=== PATIENT | female | born 1945 | race Caucasian/White ===

== ENCOUNTER 2016-04-17 14:01 | Outpatient (RCR) | payer BC ==
[~2016-04-17 14:01] MED LIST: AMLO5TAB2 PO; ASPI-892 PO; CALC-80 PO; CHOL10003 PO; ESOM40SU PO; ESTR1TAB27 PO; ESTR2TAB4 PO; FEXO180T84 PO; FLUR100T2 PO; FRS325T PO; IBP600T1 PO; IRB150T PO; LEVO50TA63 PO; LOSA100T7 PO; LRT10T PO; METO-351 PO; MULT1CAP27 PO; OMEP-10 PO; OMG1KC PO; SIMV20TA3 PO; VITA10007 PO; [UNRECOGNIZED DRUG - CODE] PO
== END 2016-07-09 | disposition home or self-care (01) ==
LOC: ONC 14:01
PROVIDERS: ATTEND Internal Medicine Hematology & Oncology
DX: D50.9 Iron deficiency anemia, unspecified (principal); Z79.899 Other long term (current) drug therapy
CPT/HCPCS: 99213

== ENCOUNTER 2016-05-10 16:10 | Outpatient (RCR) | payer BC ==
--- OUTSIDE RECORDS SUMMARY | 2016-03-14 14:15 | XMS REPORT | Continuity of Care Document ---
Author Author [facility] Organization [facility] Address Unknown Phone Unavailable Support Name Relationship Address Phone TERI RUVALCABA DO Caregiver [address] [place] [address] CYNTHIA GOOD MD Caregiver [address] [facility], [place] [address] ORTEGA ARELLANO Next Of Kin [address] [place] [id number] Insurance Providers Payer Name Policy Number Subscriber Name Relationship [id number] Leah Arellano 19 Self / Same As Patient Advance Directives Directive Response Recorded Date/Time Advance Directives No 04/08/14 12:20pm Health Care Power of Wire Stitcher Operator No 04/08/14 12:20pm Organ Donor Yes 04/08/14 12:20pm Resuscitation Status Full Code 04/08/14 12:20pm Problems No known problems or medical conditions. Medications Medication Dose Route Sig Days/Qty Instructions Order Date Discontinued Date Status Simvastatin 20 Mg PO BEDTIME 03/12/10 Active Aspirin 81 Mg PO DAILY 03/12/10 Active Estradiol 1 Tab PO DAILY 03/12/10 04/08/14 Discontinued Amlodipine Besylate (Norvasc 5 Mg) 1 PO DAILY 03/12/10 09/13/11 Discontinued Levothyroxine Sodium 0.05 Mg PO DAILY 03/12/10 Active Calcium Carbonate 1 PO DAILY 03/12/10 10/16/11 Discontinued Cholecalciferol 1 PO DAILY 03/12/10 09/13/11 Discontinued Vitamin E 1 PO DAILY 03/12/10 10/16/11 Discontinued Fish Oil 1 PO DAILY 03/12/10 10/16/11 Discontinued Losartan Potassium 100 Mg PO DAILY 07/20/10 Active Loratadine 1 Tab PO DAILY 07/20/10 04/08/14 Discontinued Amlodipine Besylate (Norvasc 5 Mg) 5 Mg PO DAILY 09/13/11 Active Omeprazole 20 Mg PO DAILY PRN 09/13/11 04/08/14 Discontinued Calcium Carbonate/Vitamin D3 2 Each PO DAILY 10/16/11 Active Multivitamins 1 Each PO DAILY 10/16/11 Active Ibuprofen 600 Mg PO DIRECTED 2 TABS IN MORNING, 1 TAB AT NOON, 1 TAB AT BEDTIME 10/16/11 04/08/14 Discontinued Estradiol 1 Mg PO DAILY 04/08/14 Active Fexofenadine Hcl 180 Mg PO DAILY 04/08/14 Active Ferrous Sulfate 325 Mg PO THREE TIMES A DAY 04/08/14 Active Esomeprazole Mag Trihydrate 40 Mg PO DAILY 04/08/14 Active Metoprolol Succinate 25 Mg PO DAILY 04/08/14 Active Flurbiprofen 100 Mg PO DAILY 04/08/14 Active Social History Social History Problem Response Recorded Date/Time Recent Foreign Travel No 04/08/2014 12:19pm Smoking Status Never a Smoker 04/08/2014 12:15pm Do you dip or chew tobacco? No 04/08/2014 12:15pm Query Response Start Date Stop Date Smoking Status Never a Smoker Hospital Discharge Instructions No hospital discharge instructions. Plan of Care No plan of care. Functional Status No functional status results. Allergies, Adverse Reactions, Alerts Allergen Type Severity Reaction Status Last Updated No Known Drug Allergies Active 03/12/10 Immunizations Name Given Type Date of Pneumonia Vaccine 03/09/10 Historical Date of Influenza Vaccine 01/07/14 Historical Vital Signs Acute Vital Signs Vital Response Date/Time Temperature (Fahrenheit) 97.9 degrees F (97.6 - 99.5) Temperature (Calculated Celsius) 36.84352 degrees C (36.4 - 37.5) Temperature Source Tympanic Pulse Rate (adult) 58 bpm (60 - 90) Respiratory Rate 16 bpm (12 - 24) O2 Sat by Pulse Oximetry 97 % (88 - 100) Blood Pressure 139/79 mm Hg Pain Pain Intensity 0 Height (Feet) 5 feet Height (Inches) 5.00 inches Height (Calculated Centimeters) 165.330666 cm Weight (Pounds) 160 pounds Weight (Calculated Grams) 90574.780 gm Weight (Calculated Kilograms) 72.808096 kilograms Height 5 ft 5 in Weight 160 lb Body Mass Index 26.6 kg/m^2 Results No known relevant diagnostic tests, laboratory data and/or discharge summary. Procedures Procedure Status Date Provider(s) Anesthesia for 30 minutes completed 04/08/14 TERI RUVALCABA DO Esophagogastroduodenoscopy (EGD) with dilation completed 04/08/14 TERI RUVALCABA DO Diagnostic colonoscopy completed 04/08/14 TERI RUVALCABA DO Encounters Encounter Location Date/Time Registered Surgical Day Care [facility] 04/08/14 11:30am Registered Clinic [facility] 04/07/14 6:11am Registered Recurring [facility] 04/05/14 10:33am
== END 2016-05-28 08:52 | disposition home or self-care (01) ==
PROVIDERS: ATTEND Physician Assistant
DX: M47.9 Spondylosis, unspecified (principal); M43.10 Spondylolisthesis, site unspecified; M48.00 Spinal stenosis, site unspecified

== ENCOUNTER → 2016-09-20 | Outpatient (CLI) | payer BC | LOC: CARD 11:55 | PROVIDERS: ATTEND Nurse Practitioner Family | DX: I65.23 Occlusion and stenosis of bilateral carotid arteries (principal); E78.4 Other hyperlipidemia; I10 Essential (primary) hypertension; I34.1 Nonrheumatic mitral (valve) prolapse | CPT/HCPCS: 93306 ==

== ENCOUNTER 2016-10-15 14:55 | Outpatient (RCR) | payer BC | END 2017-01-07 | disposition home or self-care (01) | LOC: ONC 14:55 | PROVIDERS: ATTEND Internal Medicine Hematology & Oncology | DX: D50.9 Iron deficiency anemia, unspecified (principal); Z79.899 Other long term (current) drug therapy | CPT/HCPCS: 99213 ==

== ENCOUNTER → 2016-12-03 | Outpatient (CLI) | payer BC ==
--- NOTE | 2016-12-03 14:22 | Diagnostic Imaging Report ---
PROCEDURE: MRI right joint lower extremity without contrast. TECHNIQUE: Multiplanar, multisequence non contrast-enhanced MRI of the right lower extremity was accomplished. INDICATION: Twisted right knee 2 weeks ago. Right knee pain. FINDINGS: There is a moderate to large knee effusion. There is a Portillo's cyst measuring 4.3 x 3.1 x 2 cm with adjacent free fluid suggestive of a leak. There is also septated fluid seen that appears to be loculated within the joint capsule abutting the posterior superior aspect of the PCL. This might represent a loculated effusion in this region. The extensor mechanism is intact. There is an undersurface tear involving the posterior root and posterior horn of the lateral meniscus. There is a meniscofemoral ligament normal variant suggested coursing anterior to the PCL. The medial meniscus demonstrates a complex tear involving the body of the meniscus and extending to the posterior horn. The ACL and the PCL demonstrate no significant tear. MCL is thickened probably related to old injury with possible component of an acute sprain based on the adjacent soft tissue edema. The lateral collateral ligament complex appears intact. There is subchondral bone marrow edema in the medial compartment, worst along the medial aspect of the medial tibial plateau. The cartilage in the medial compartment demonstrates generalized thinning, worst in the medial aspect at about 75%. Cartilage in the lateral compartment demonstrates mild thinning less than 50%. The cartilage in the patellofemoral compartment demonstrates some fissuring with no significant thinning otherwise. There is mild subcutaneous edema anterior to the patellar tendon. IMPRESSION: 1. Osteoarthritis changes most prominent in the medial compartment. 2. Complex tear in the body of the medial meniscus extending to the posterior horn. 3. Undersurface tear involving the posterior root and adjacent posterior horn in the lateral meniscus. 4. Leaking Portillo's cyst. Dictated by: Dictated on workstation # [id number]
== END ==
LOC: RAD 13:10
PROVIDERS: ATTEND Orthopaedic Surgery
DX: S83.231A Complex tear of medial meniscus, current injury, right knee, initial encounter (principal); S83.281A Other tear of lateral meniscus, current injury, right knee, initial encounter; M17.11 Unilateral primary osteoarthritis, right knee; M66.0 Rupture of popliteal cyst; X50.9XXA Other and unspecified overexertion or strenuous movements or postures, initial encounter; Y99.8 Other external cause status
CPT/HCPCS: 73721

== ENCOUNTER 2017-04-15 13:17 | Outpatient (RCR) | payer BC | END 2017-07-07 | disposition home or self-care (01) | LOC: ONC 13:17 | PROVIDERS: ATTEND Internal Medicine Hematology & Oncology | DX: D50.9 Iron deficiency anemia, unspecified (principal); Z79.899 Other long term (current) drug therapy | CPT/HCPCS: 99213 ==

== ENCOUNTER → 2017-09-24 | Outpatient (CLI) | payer MEDICARE, OTHER ==
[~2017-09-24] MED LIST changes: +AMLO5TAB4 PO; +ASPI-586 PO; +FERR-84 PO; +HYDR-3870 PO; +LEVO50TA66 PO; +LORA10TA76 PO; +LOSA100T28 PO; +MULT-35 PO; +NITR-65 PO; +TAMS0.4C98 PO
--- NOTE | 2017-09-24 09:01 | Diagnostic Imaging Report ---
PROCEDURE: CT abdomen and pelvis without contrast. TECHNIQUE: Multiple contiguous axial images were obtained through the abdomen and pelvis without the use of intravenous contrast. INDICATION: Hematuria. History of kidney stones and UTI. FINDINGS: There are multiple calculi present within the kidneys bilaterally. There is a stone wedged into the right UPJ which is causing mild hydronephrosis. This measures approximately 9 x 6 mm. There are several additional smaller stones in the lower pole calyx on the right. There are few small stones scattered in the left kidney with moderate stone noted at the UPJ on the left. This is not causing obstruction at this time. This measures 9 x 5 mm. The distal ureters are not distended. There are no distal ureteral stones. The bladder is decompressed. The uterus is absent. There are no pelvic masses. There is diverticulosis of the descending and sigmoid colon without evidence of acute diverticulitis. Small bowel and stomach appear normal. The lung bases are clear. Liver appears normal. Gallbladder is absent. Bile ducts not dilated. The pancreas and spleen are normal. The adrenal glands are normal. There is no intra-abdominal adenopathy. No free fluid is demonstrated. There are no bony lesions. IMPRESSION: There is bilateral nephrolithiasis. There are calculi in the renal pelvis at the UPJ bilaterally largest on the right measuring 9 x 6 mm is causing mild hydronephrosis. There is also a 2 cm cyst in the upper pole of the left kidney. Dictated by: Dictated on workstation # [id number]
== END ==
LOC: RAD 08:24
PROVIDERS: ATTEND Urology
DX: N13.2 Hydronephrosis with renal and ureteral calculous obstruction (principal); N28.1 Cyst of kidney, acquired; Z87.440 Personal history of urinary (tract) infections
CPT/HCPCS: 74176

== ENCOUNTER 2017-10-14 05:39 | Outpatient (CLI) | payer MEDICARE, OTHER ==
[~2017-10-14] VITALS: Ht 165.1 cm; Wt 69.9 kg
[~2017-10-14 05:39] MED LIST changes: -AMLO5TAB4 PO; -ASPI-586 PO; -FERR-84 PO; -HYDR-3870 PO; -LEVO50TA66 PO; -LORA10TA76 PO; -LOSA100T28 PO; -MULT-35 PO; -NITR-65 PO; -TAMS0.4C98 PO
[2017-10-14] MEDS ORDERED: LOSA100T28 PO (11:49)
[2017-10-14] MEDS ORDERED: SIMV20TA3 PO (11:49)
[2017-10-14] MEDS ORDERED: ASPI-586 PO (11:49)
[2017-10-14] MEDS ORDERED: FERR-84 PO (11:49)
[2017-10-14] MEDS ORDERED: LORA10TA76 PO (11:49)
[2017-10-14] MEDS ORDERED: LEVO50TA66 PO (11:49)
[2017-10-14] MEDS ORDERED: AMLO5TAB4 PO (11:49)
[2017-10-14] MEDS ORDERED: METO-351 PO (11:49)
[2017-10-14] MEDS ORDERED: MULT-35 PO (11:49)
== END 2017-10-14 11:53 | disposition home or self-care (01) ==
LOC: PREOP 05:39
PROVIDERS: ATTEND Urology
DX: Z01.818 Encounter for other preprocedural examination (principal)

== ENCOUNTER 2017-10-16 07:32 | Day surgery (SDC) | payer MEDICARE, OTHER ==
[~2017-10-16] VITALS: Ht 165.1 cm; Wt 69.9 kg
[~2017-10-16 07:32] MED LIST changes: +AMLO5TAB4 PO; +ASPI-586 PO; +FERR-84 PO; +LEVO50TA66 PO; +LORA10TA76 PO; +LOSA100T28 PO; +MULT-35 PO
[2017-10-16] MEDS ORDERED: cefTRIAXone INJECTION 1,000 MG in NS (IVPB) 50 ML IV ONE (07:45)
[2017-10-16] MEDS: LACTATED RINGERS 1,000 ML IV PRN ×2 (08:15→09:39)
[2017-10-16 08:20] VITALS: BP 154/108
--- NOTE | 2017-10-16 08:21 | Diagnostic Imaging Report ---
INDICATION: Renal stone. TIME OF EXAMINATION: 08:14 a.m. FINDINGS: There has been fragmentation of numerous calculi overlying the lower pole of the right kidney. There also appears to be some slight fragmentation of the previously noted large calculus in the right renal pelvis. These fragments remain in the renal pelvis. There has also been fragmentation of multiple calculi in the left renal pelvis. No calculi within the ureters are seen. The bowel gas pattern is unremarkable. Surgical clips in the right upper quadrant are seen. IMPRESSION: Fragmentation of bilateral renal calculi, as described. No definite calculi along the course of ureters are seen. Dictated by: Dictated on workstation # [id number]
--- NOTE | 2017-10-16 08:34 | Progress Note-Pre Operative ---
Pre-Operative Progress Note H&P Reviewed The H&P was reviewed, patient examined and no changes noted. Date Seen by Provider: Oct 16, 2017 Time Seen by Provider: 08:33 Date H&P Reviewed: Oct 16, 2017 Time H&P Reviewed: 08:33 Pre-Operative Diagnosis: RT UPJ STONE MIGUEL A BRADLEY MD Oct 16, 2017 8:34 am
--- NOTE | 2017-10-16 08:44 | Progress Note-Post Operative ---
Post-Operative Progess Note Surgeon (s)/Storyboard Artist (s) Surgeon MIGUEL A BRADLEY MD Storyboard Artist: N/A Pre-Operative Diagnosis RT UPJ STONE Post-Operative Diagnosis SAME Procedure & Operative Findings Date of Procedure 10/16/17 Procedure Performed/Findings RT ESWL Anesthesia Type GENERAL Estimated Blood Loss Estimated blood loss (mL): N/A Specimens/Packing Specimens Removed N/A Packing: N/A MIGUEL A BRADLEY MD Oct 16, 2017 8:44 am
--- NOTE | 2017-10-16 08:45 | Discharge Inst-Urology ---
Discharge Inst-Urology Discharge Medications New, Converted, or Re-newed RX: RX on Chart Patient Instructions/Follow Up Plan Please make appointment to been seen in office Saturday 10/28, KUB prior to it KUB on way home Stay off ASA Post ESWL instructions Increase oral fluids for 48 hours and then as needed. Diet and Activity as tolerated. If questions or concerns contact your physician Or seek help at emergency department. MIGUEL A BRADLEY MD Oct 16, 2017 8:45 am
[2017-10-16] MEDS ORDERED: fentaNYL INJECTION 100 MCG/2 ML AMP ONE (09:06)
[2017-10-16] MEDS ORDERED: proPOfol 200 MG/20 ML (DIPRIVAN) VIAL IV ONE (09:23)
[2017-10-16] MEDS ORDERED: DEXAMETHASONE 10 MG/ML (DECADRON) 1 ML VIAL ONE (09:23)
[2017-10-16] MEDS ORDERED: FUROSEMIDE 40 MG/4 ML INJ (LASIX) ONE (09:23)
[2017-10-16] MEDS ORDERED: KETOROLAC 30 MG/ML VIAL ONE (09:23)
[2017-10-16] MEDS ORDERED: SEVOFLURANE (ULTANE) 15 ML INHAL SOLN ONE (09:23)
[2017-10-16] MEDS ORDERED: LIDOCAINE PF 2% 5 ML (XYLOCAINE) VIAL ONE (09:23)
[2017-10-16] MEDS ORDERED: ONDANSETRON 4 MG/2 ML (SDV) Z0FRAN ONE (09:23)
[2017-10-16] MEDS ORDERED: HYDROmorphone 1 MG/ML (DILAUDID) 1 ML SYRINGE IV PRN (10:00)
[2017-10-16] MEDS ORDERED: ONDANSETRON 4 MG/2 ML (SDV) Z0FRAN IVP PRN (10:00)
[2017-10-16 10:50] VITALS: BP 166/95
[2017-10-16] MEDS ORDERED: TAMS0.4C98 PO (11:14)
[2017-10-16] MEDS ORDERED: NITR-65 PO (11:14)
[2017-10-16] MEDS ORDERED: HYDR-3870 PO (11:14)
[2017-10-16 11:20] VITALS: BP 162/73
[2017-10-16 11:50] VITALS: BP 170/86
--- NOTE | 2017-10-16 18:51 | Diagnostic Imaging Report ---
INDICATION: Nephrolithiasis. EXAMINATION: KUB was obtained at 11:58 a.m. FINDINGS: There are stone fragments projecting over the lower pole of the right kidney that appear considerably smaller than comparison study from earlier in the day. IMPRESSION: Stone in the right kidney appears to have undergone interval fragmentation. There also appears to be a small cluster of stones in the left renal pelvis. Dictated by: Dictated on workstation # [id number]
--- NOTE | 2017-10-16 19:21 | OPERATIVE REPORT ---
DATE OF SERVICE: 10/16/2017 PREOPERATIVE DIAGNOSES: 1. Right ureteropelvic junction stone. 2. Bilateral renal stones. POSTOPERATIVE DIAGNOSES: 1. Right ureteropelvic junction stone. 2. Bilateral renal stones. OPERATION PERFORMED: Right ESWL. SURGEON: Nguyễn Bradley MD. ANESTHESIA: General. COMPLICATIONS: None. DESCRIPTION OF PROCEDURE: Under satisfactory general anesthesia, the patient in supine position on the ESWL table, the right UPJ stone was localized. Shocks were delivered at a kV of 5. A total of 2500 shocks completely fragmented the stone, which was not visible anymore. The patient received 40 mg of Lasix and 30 mg of Toradol IV at the end of the procedure. She tolerated the procedure and anesthesia well and was sent to recovery room in stable condition. Job ID: [id number] DocumentID: [id number] Dictated Date: 10/16/2017 09:43:31 Canoe Builder Date: 10/16/2017 18:59:48 Dictated By: NGUYỄN BRADLEY MD
== END 2017-10-16 12:18 | disposition home or self-care (01) ==
LOC: SDC 07:32
PROVIDERS: ATTEND Urology
DX: N20.0 Calculus of kidney (principal); N20.1 Calculus of ureter; I10 Essential (primary) hypertension; Z79.82 Long term (current) use of aspirin; Z79.899 Other long term (current) drug therapy
CPT/HCPCS: 74018; 87081

== ENCOUNTER → 2017-10-28 | Outpatient (CLI) | payer MEDICARE, OTHER ==
[~2017-10-28] VITALS: Ht 165.1 cm; Wt 69.9 kg
[~2017-10-28] MED LIST changes: +HYDR-3870 PO; +NITR-65 PO; +TAMS0.4C98 PO
== END ==
LOC: PREOP 10-24 05:35
PROVIDERS: ATTEND Urology
DX: Z01.818 Encounter for other preprocedural examination (principal)

== ENCOUNTER → 2017-10-28 | Outpatient (CLI) | payer MEDICARE, OTHER ==
--- NOTE | 2017-10-28 11:13 | Diagnostic Imaging Report ---
INDICATION: Nephrolithiasis KUB 11:18 AM Gallbladder is surgically absent. There appears to be some stone fragments projecting over a mid and lower pole calyx of left kidney. There are no calculi seen in the ureteral distribution. IMPRESSION: There appears to be fragmented stones in the left kidney. Dictated by: Dictated on workstation # [id number]
== END ==
LOC: RAD 10:47
PROVIDERS: ATTEND Urology
DX: N20.0 Calculus of kidney (principal)
CPT/HCPCS: 74018

== ENCOUNTER 2017-10-29 06:29 | Day surgery (SDC) | payer MEDICARE, OTHER ==
[~2017-10-29] VITALS: Ht 165.1 cm; Wt 69.9 kg
[2017-10-29 07:00] VITALS: BP 150/71
[2017-10-29] MEDS: LACTATED RINGERS 1,000 ML IV PRN ×2 (07:00→08:58)
--- NOTE | 2017-10-29 07:01 | Progress Note-Pre Operative ---
Pre-Operative Progress Note H&P Reviewed The H&P was reviewed, patient examined and no changes noted. Date Seen by Provider: Oct 29, 2017 Time Seen by Provider: 07:01 Date H&P Reviewed: Oct 29, 2017 Time H&P Reviewed: 07:01 Pre-Operative Diagnosis: LT RENAL STONES MIGUEL A BRADLEY MD Oct 29, 2017 7:01 am
--- NOTE | 2017-10-29 07:11 | Diagnostic Imaging Report ---
INDICATION: Bilateral renal stones. COMPARISON: 10/28/2017 FINDINGS: Single frontal view of the abdomen is obtained. The bowel gas pattern appears unremarkable. Fragmented stones seen over the medial aspect of the mid left kidney appear fairly similar to the prior study. No ureteral stones are suspected. No new renal stones are suspected. There are surgical clips in the right upper quadrant from previous cholecystectomy. There are moderate degenerative changes in lower lumbar spine. IMPRESSION: Fragmented stones seen over the medial aspect of the left kidney appear fairly similar to the recent prior exam. No new abnormality or significant interval change is appreciated. Dictated by: Dictated on workstation # [id number]
[2017-10-29] MEDS ORDERED: cefTRIAXone INJECTION 1,000 MG in NS (IVPB) 50 ML IV ONE (07:30)
[2017-10-29] MEDS ORDERED: CATHETER FLUSH 10 ML SYR IV PRN (07:45)
[2017-10-29] MEDS ORDERED: MIDAZOLAM 2 MG/2 ML (VERSED) VIAL ONE (08:10)
[2017-10-29] MEDS ORDERED: ONDANSETRON 4 MG/2 ML (SDV) Z0FRAN ONE (08:10)
[2017-10-29] MEDS ORDERED: LIDOCAINE PF 2% 5 ML (XYLOCAINE) VIAL ONE (08:10)
[2017-10-29] MEDS ORDERED: fentaNYL INJECTION 100 MCG/2 ML AMP ONE (08:10)
[2017-10-29] MEDS ORDERED: DEXAMETHASONE 10 MG/ML (DECADRON) 1 ML VIAL ONE (08:10)
[2017-10-29] MEDS ORDERED: proPOfol 200 MG/20 ML (DIPRIVAN) VIAL IV ONE (08:10)
[2017-10-29] MEDS ORDERED: KETOROLAC 30 MG/ML VIAL ONE (08:13)
[2017-10-29] MEDS ORDERED: SEVOFLURANE (ULTANE) 15 ML INHAL SOLN ONE (08:13)
[2017-10-29] MEDS ORDERED: FUROSEMIDE 40 MG/4 ML INJ (LASIX) ONE (08:13)
--- NOTE | 2017-10-29 08:27 | Progress Note-Post Operative ---
Post-Operative Progess Note Surgeon (s)/Skin Diving Teacher (s) Surgeon MIGUEL A BRADLEY MD Skin Diving Teacher: N/A Pre-Operative Diagnosis LT RENAL STONES Post-Operative Diagnosis SAME Procedure & Operative Findings Date of Procedure 10/29/17 Procedure Performed/Findings LT ESWL Anesthesia Type GENERAL Estimated Blood Loss Estimated blood loss (mL): N/A Specimens/Packing Specimens Removed N/A Packing: N/A MIGUEL A BRADLEY MD Oct 29, 2017 8:27 am
--- NOTE | 2017-10-29 08:29 | Discharge Inst-Urology ---
Discharge Inst-Urology Discharge Medications New, Converted, or Re-newed RX: RX on Chart Patient Instructions/Follow Up Plan Please make appointment to been seen in office Saturday 11/11, ABDULLAHI prior to it. KULeann on way home Post ESWL instructions Increase oral fluids for 48 hours and then as needed. Diet and Activity as tolerated. If questions or concerns contact your physician Or seek help at emergency department. MIGUEL A BRADLEY MD Oct 29, 2017 8:29 am
[2017-10-29] MEDS ORDERED: morphine INJ 10 MG/ML 1ML (SYR OR VIAL) IVP PRN (09:00)
[2017-10-29] MEDS ORDERED: MEPERIDINE (DEMEROL) INJ 50 MG/ML IVP PRN (09:00)
[2017-10-29] MEDS ORDERED: ONDANSETRON 4 MG/2 ML (SDV) Z0FRAN IVP PRN (09:00)
--- NOTE | 2017-10-29 09:03 | Anesthesia-General Post-Op ---
General Patient Condition Mental Status/LOC: Same as Preop Cardiovascular: Satisfactory Nausea/Vomiting: Absent Respiratory: Satisfactory Pain: Controlled Complications: Absent Post Op Complications Complications None Follow Up Care/Instructions Patient Instructions None needed. Anesthesia/Patient Condition Patient Condition Patient is doing well, no complaints, stable vital signs, no apparent adverse anesthesia problems. No complications reported per nursing. [place] [facility] [place] Yes ERAN GREEN CRNA Oct 29, 2017 09:03
[2017-10-29 09:40] VITALS: BP 143/79
[2017-10-29] MEDS ORDERED: NITR-65 PO (09:45)
[2017-10-29 10:10] VITALS: BP 146/79
[2017-10-29 10:40] VITALS: BP 150/77
[2017-10-29 10:50] VITALS: BP 150/77
--- NOTE | 2017-10-29 13:17 | Diagnostic Imaging Report ---
EXAMINATION: Supine abdomen at 10:51 a.m. INDICATION: Post ESWL. FINDINGS: The exam performed earlier today at 7:10 a.m. noted fragmented stones overlying the medial aspect of the left kidney. Those calcific densities are again identified on this study. They are somewhat less conspicuous, and I suspect that they have been fragmented in the ESWL procedure performed in the interval since the prior study. There is no clear evidence for a calculus along the expected path of the left ureter, although the path of the left ureter is obscured by bowel gas and fecal material. No new abnormality has developed otherwise. IMPRESSION: 1. The calcifications overlying the left renal pelvis seen previously are less conspicuous and most likely have been fragmented by the ESWL procedure. 2. The overall appearance of the abdomen has not changed significantly otherwise. 3. A followup exam would be recommended for continued evaluation. Dictated by: Dictated on workstation # [id number]
--- NOTE | 2017-10-29 13:55 | OPERATIVE REPORT ---
DATE OF SERVICE: 10/29/2017 PREOPERATIVE DIAGNOSIS: Left renal stones. POSTOPERATIVE DIAGNOSIS: Left renal stones. OPERATION PERFORMED: Left ESWL. SURGEON: Nguyễn Bradley MD ANESTHESIA: General. COMPLICATIONS: None. DESCRIPTION OF PROCEDURE: Under satisfactory general anesthesia, the patient in supine position on the ESWL table, the left renal stones were localized. Shocks were delivered at a kV of 5. Total of 1500 shocks completely fragmented the stones that were not visible anymore. The patient received 40 mg of Lasix and 30 mg of Toradol IV at the end of the procedure. She tolerated the procedure and anesthesia well and was sent to recovery room in stable condition. Job ID: [id number] DocumentID: [id number] Dictated Date: 10/29/2017 08:43:53 Bilingual Sales Consultant Date: 10/29/2017 13:54:41 Dictated By: NGUYỄN BRADLEY MD
== END 2017-10-29 10:50 | disposition home or self-care (01) ==
LOC: SDC 06:29
PROVIDERS: ATTEND Urology
DX: N20.0 Calculus of kidney (principal); I25.10 Atherosclerotic heart disease of native coronary artery without angina pectoris; I10 Essential (primary) hypertension; D64.9 Anemia, unspecified; Z79.899 Other long term (current) drug therapy
CPT/HCPCS: 74018; 87081

== ENCOUNTER → 2017-11-11 | Outpatient (CLI) | payer MEDICARE, OTHER ==
--- NOTE | 2017-11-11 14:12 | Diagnostic Imaging Report ---
INDICATION: Nephrolithiasis. COMPARISON: 10/29/2017. FINDINGS: The bowel gas pattern is nonspecific. There are surgical clips in the right upper quadrant. There is an ill-defined calcification projected over the inferior aspect of the left kidney, suspect for nephrolithiasis. IMPRESSION: Presumed left nephrolithiasis. Nonspecific bowel gas pattern. Dictated by: Dictated on workstation # [id number]
== END ==
LOC: RAD 11:40
PROVIDERS: ATTEND Urology
DX: N20.0 Calculus of kidney (principal)
CPT/HCPCS: 74018

== ENCOUNTER 2017-11-25 14:15 | Outpatient (RCR) | payer MEDICARE, OTHER ==
[2017-10-07 11:33] LABS: BASOPHILS % (AUTO) 0 % (0-10); EOSINOPHILS # (AUTO) 0.6 10^3/uL (0.0-0.3); EOSINOPHILS % (AUTO) 8 % (0-10); HEMATOCRIT 34 % (35-52); HEMOGLOBIN 11.1 G/DL (11.5-16.0); LYMPHOCYTES # (AUTO) 1.3 X 10^3 (1.0-4.0); LYMPHOCYTES % (AUTO) 19 % (12-44); MEAN CORPUSCULAR HEMOGLOBIN 29 PG (25-34); MEAN CORPUSCULAR HGB CONC 33 G/DL (32-36); MEAN CORPUSCULAR VOLUME 89 FL (80-99); MEAN PLATELET VOLUME 8.6 FL (7.4-10.4); MONOCYTES # (AUTO) 0.8 X 10^3 (0.0-1.0); MONOCYTES % (AUTO) 12 % (0-12); NEUTROPHILS # (AUTO) 4.3 X 10^3 (1.8-7.8); NEUTROPHILS % (AUTO) 61 % (42-75); PLATELET COUNT 198 10^3/uL (130-400); RED BLOOD COUNT 3.83 10^6/uL (4.35-5.85); RED CELL DISTRIBUTION WIDTH 13.3 % (10.0-14.5)
[2017-10-07 11:58] LABS: ALANINE AMINOTRANSFERASE 17 U/L (0-55); ALBUMIN 4.1 GM/DL (3.2-4.5); ALKALINE PHOSPHATASE 103 U/L (40-136); BILIRUBIN,TOTAL 0.4 MG/DL (0.1-1.0); BUN/CREATININE RATIO 27; CALCIUM 9.7 MG/DL (8.5-10.1); CARBON DIOXIDE 24 MMOL/L (21-32); CHLORIDE 110 MMOL/L (98-107); CREATININE SERUM 0.78 MG/DL (0.60-1.30); GFR ESTIMATED > 60; GLUCOSE 95 MG/DL (70-105); POTASSIUM 4.1 MMOL/L (3.6-5.0); SODIUM 141 MMOL/L (135-145); TOTAL PROTEIN 6.7 GM/DL (6.4-8.2)
[~2017-11-25 14:15] MED LIST changes: +FERRIC CARBOXYMALTOSE (CANCER) 750 MG in NS (IVPB) CANCER CENTER 250 ML IV SCH
[2017-11-25 14:34] LABS: BASOPHILS % (AUTO) 0 % (0-10); EOSINOPHILS # (AUTO) 0.5 10^3/uL (0.0-0.3); EOSINOPHILS % (AUTO) 7 % (0-10); HEMATOCRIT 36 % (35-52); HEMOGLOBIN 12.3 G/DL (11.5-16.0); LYMPHOCYTES # (AUTO) 1.6 X 10^3 (1.0-4.0); LYMPHOCYTES % (AUTO) 23 % (12-44); MEAN CORPUSCULAR HEMOGLOBIN 31 PG (25-34); MEAN CORPUSCULAR HGB CONC 34 G/DL (32-36); MEAN CORPUSCULAR VOLUME 90 FL (80-99); MONOCYTES # (AUTO) 0.6 X 10^3 (0.0-1.0); MONOCYTES % (AUTO) 9 % (0-12); NEUTROPHILS # (AUTO) 4.4 X 10^3 (1.8-7.8); NEUTROPHILS % (AUTO) 61 % (42-75); PLATELET COUNT 199 10^3/uL (130-400); RED BLOOD COUNT 3.98 10^6/uL (4.35-5.85); RED CELL DISTRIBUTION WIDTH 13.5 % (10.0-14.5); WHITE BLOOD COUNT 7.1 10^3/uL (4.3-11.0)
[2017-11-25 14:58] LABS: ALANINE AMINOTRANSFERASE 16 U/L (0-55); ALBUMIN 4.2 GM/DL (3.2-4.5); ALKALINE PHOSPHATASE 152 U/L (40-136); BILIRUBIN,TOTAL 0.3 MG/DL (0.1-1.0); BUN/CREATININE RATIO 25; CALCIUM 9.8 MG/DL (8.5-10.1); CARBON DIOXIDE 24 MMOL/L (21-32); CHLORIDE 110 MMOL/L (98-107); CREATININE SERUM 0.76 MG/DL (0.60-1.30); GFR ESTIMATED > 60; GLUCOSE 103 MG/DL (70-105); POTASSIUM 4.1 MMOL/L (3.6-5.0); SODIUM 141 MMOL/L (135-145); TOTAL PROTEIN 6.7 GM/DL (6.4-8.2)
== END 2017-12-02 13:15 | disposition home or self-care (01) ==
LOC: ONC 14:15
PROVIDERS: ATTEND Internal Medicine Hematology & Oncology
DX: D50.9 Iron deficiency anemia, unspecified (principal); Z79.899 Other long term (current) drug therapy
CPT/HCPCS: 36415; 80053; 82728; 85025; 96365

== ENCOUNTER 2017-12-02 13:18 | Outpatient (RCR) | payer MEDICARE, OTHER ==
[~2017-12-02 13:18] MED LIST changes: -FERRIC CARBOXYMALTOSE (CANCER) 750 MG in NS (IVPB) CANCER CENTER 250 ML IV SCH; -LOSA100T28 PO; +LOSA100T8 PO
== END 2017-12-27 | disposition home or self-care (01) ==
LOC: ONC 13:18
PROVIDERS: ATTEND Internal Medicine Hematology & Oncology
DX: D50.9 Iron deficiency anemia, unspecified (principal); Z79.899 Other long term (current) drug therapy
CPT/HCPCS: 99213

== ENCOUNTER 2018-03-05 10:20 | Outpatient (RCR) | payer MEDICARE, OTHER ==
[2018-02-28 11:29] LABS: BASOPHILS % (AUTO) 0 % (0-10); EOSINOPHILS # (AUTO) 0.5 10^3/uL (0.0-0.3); EOSINOPHILS % (AUTO) 6 % (0-10); HEMATOCRIT 38 % (35-52); HEMOGLOBIN 12.3 G/DL (11.5-16.0); LYMPHOCYTES # (AUTO) 1.5 X 10^3 (1.0-4.0); LYMPHOCYTES % (AUTO) 19 % (12-44); MEAN CORPUSCULAR HEMOGLOBIN 30 PG (25-34); MEAN CORPUSCULAR HGB CONC 32 G/DL (32-36); MEAN CORPUSCULAR VOLUME 91 FL (80-99); MEAN PLATELET VOLUME 9.2 FL (7.4-10.4); MONOCYTES # (AUTO) 0.8 X 10^3 (0.0-1.0); MONOCYTES % (AUTO) 11 % (0-12); NEUTROPHILS % (AUTO) 64 % (42-75); PLATELET COUNT 233 10^3/uL (130-400); RED CELL DISTRIBUTION WIDTH 12.6 % (10.0-14.5); WHITE BLOOD COUNT 7.8 10^3/uL (4.3-11.0)
[2018-02-28 11:50] LABS: ALANINE AMINOTRANSFERASE 17 U/L (0-55); ALBUMIN 4.5 GM/DL (3.2-4.5); ALKALINE PHOSPHATASE 117 U/L (40-136); BILIRUBIN,TOTAL 0.5 MG/DL (0.1-1.0); BUN/CREATININE RATIO 29; CALCIUM 10.4 MG/DL (8.5-10.1); CARBON DIOXIDE 24 MMOL/L (21-32); CHLORIDE 107 MMOL/L (98-107); CREATININE SERUM 0.75 MG/DL (0.60-1.30); GFR ESTIMATED > 60; GLUCOSE 92 MG/DL (70-105); POTASSIUM 4.2 MMOL/L (3.6-5.0); SODIUM 142 MMOL/L (135-145); TOTAL PROTEIN 7.1 GM/DL (6.4-8.2)
[~2018-03-05 10:20] MED LIST changes: +LOSA100T57 PO; -LOSA100T8 PO
== END 2018-05-29 | disposition home or self-care (01) ==
LOC: ONC 10:20
PROVIDERS: ATTEND Internal Medicine Hematology & Oncology
DX: D50.9 Iron deficiency anemia, unspecified (principal); Z79.899 Other long term (current) drug therapy
CPT/HCPCS: 80053; 82728; 85025; 99213

== ENCOUNTER 2018-09-04 10:27 | Outpatient (RCR) | payer MEDICARE, OTHER ==
[2018-08-28 10:49] LABS: ABSOLUTE RETIC # 34 10e9/L (24-90); BASOPHILS % (AUTO) 0 % (0-10); EOSINOPHILS # (AUTO) 0.7 10^3/uL (0.0-0.3); EOSINOPHILS % (AUTO) 8 % (0-10); HEMATOCRIT 38 % (35-52); HEMOGLOBIN 12.2 G/DL (11.5-16.0); LYMPHOCYTES # (AUTO) 1.4 X 10^3 (1.0-4.0); LYMPHOCYTES % (AUTO) 18 % (12-44); MEAN CORPUSCULAR HEMOGLOBIN 29 PG (25-34); MEAN CORPUSCULAR HGB CONC 32 G/DL (32-36); MEAN CORPUSCULAR VOLUME 89 FL (80-99); MONOCYTES # (AUTO) 0.9 X 10^3 (0.0-1.0); MONOCYTES % (AUTO) 11 % (0-12); NEUTROPHILS # (AUTO) 4.9 X 10^3 (1.8-7.8); NEUTROPHILS % (AUTO) 63 % (42-75); PLATELET COUNT 222 10^3/uL (130-400); RED CELL DISTRIBUTION WIDTH 12.9 % (10.0-14.5); RETICULOCYTE % 0.79 % (0.50-2.40); WHITE BLOOD COUNT 7.8 10^3/uL (4.3-11.0)
[2018-08-28 11:04] LABS: ALANINE AMINOTRANSFERASE 16 U/L (0-55); ALBUMIN 4.2 GM/DL (3.2-4.5); ALKALINE PHOSPHATASE 106 U/L (40-136); BILIRUBIN,TOTAL 0.3 MG/DL (0.1-1.0); BUN/CREATININE RATIO 27; CALCIUM 10.2 MG/DL (8.5-10.1); CARBON DIOXIDE 24 MMOL/L (21-32); CHLORIDE 110 MMOL/L (98-107); CREATININE SERUM 0.79 MG/DL (0.60-1.30); GFR ESTIMATED > 60; GLUCOSE 93 MG/DL (70-105); POTASSIUM 4.5 MMOL/L (3.6-5.0); SODIUM 144 MMOL/L (135-145); TOTAL PROTEIN 6.8 GM/DL (6.4-8.2)
[2018-09-04 11:01] LABS: BILIRUBIN,URINE NEGATIVE (NEGATIVE); CLARITY,URINE CLEAR; COLOR,URINE YELLOW; GLUCOSE, URINE (UA) NEGATIVE (NEGATIVE); KETONES,URINE NEGATIVE (NEGATIVE); LEUKOCYTE ESTERASE ,URINE 3+ (NEGATIVE); NITRITE,URINE NEGATIVE (NEGATIVE); PH,URINE 5 (5-9); PROTEIN,URINE NEGATIVE (NEGATIVE); UROBILINOGEN,URINE NORMAL (NORMAL)
[2018-09-04 11:22] LABS: BACTERIA,URINE MODERATE /HPF; WBC,URINE 25-50 /HPF
== END 2018-11-26 | disposition home or self-care (01) ==
LOC: ONC 10:27
PROVIDERS: ATTEND Internal Medicine Hematology & Oncology
DX: D50.9 Iron deficiency anemia, unspecified (principal); Z79.899 Other long term (current) drug therapy
CPT/HCPCS: 36415; 80053; 81000; 82728; 85025; 85045; 87077; 87088; 87186; 99213

== ENCOUNTER → 2018-12-03 | Outpatient (CLI) | payer MEDICARE, OTHER ==
--- NOTE | 2018-12-03 15:38 | Diagnostic Imaging Report ---
EXAMINATION: Supine abdomen at 12:15 p.m. INDICATION: Urinary tract infection. FINDINGS: The prior abdomen exam of 11/11/2017 noted a calcification overlying the inferior pole of the left kidney. That finding is again evident and does not seem to have changed significantly since the prior exam; however in the interval since the previous study, a 6 mm calcific density has developed over the inferior pole of the right kidney. This is probably secondary to nephrolithiasis. If further study is desired, then CT of the abdomen and pelvis will be recommended. There is no sign of a calculus along the expected paths of the ureters. The small phleboliths seen previously are again evident and no different. There is some gas in both the large and small bowel in a nonspecific fashion. There is no evidence for bowel obstruction. There is no mass, organomegaly, or pathological calcification evident. There is a moderate amount of fecal material within the colon. This is similar to the prior exam. Surgical clips are again seen in the right upper quadrant. The osseous structures are intact. IMPRESSION: 1. In the interval since the prior study, a 6 mm calcification has developed over the inferior pole of the right kidney. Most likely, this is due to an intrarenal calculus. Recommendations as above. 2. The overall appearance of the abdomen has not changed significantly otherwise. Dictated by: Dictated on workstation # [id number]
== END ==
LOC: RAD 11:38
PROVIDERS: ATTEND Urology
DX: N39.0 Urinary tract infection, site not specified (principal); N28.89 Other specified disorders of kidney and ureter; I87.8 Other specified disorders of veins; Z98.890 Other specified postprocedural states; Z87.442 Personal history of urinary calculi
CPT/HCPCS: 74018

== ENCOUNTER 2018-12-23 07:03 | Day surgery (SDC) | payer MEDICARE, OTHER ==
[2018-12-23] VITALS (10 sets, daily range): BP systolic 136–168; BP diastolic 75–87
[~2018-12-23] VITALS: Ht 165.1 cm; Wt 69.9 kg
[~2018-12-23 07:03] MED LIST changes: +CETI10TA20 PO; +LISI10TA2 PO; +MULT1TAB69 PO
[2018-12-23] MEDS ORDERED: cefTRIAXone FOR IV USE 1,000 MG in WATER (STERILE) FOR INJECTION 10 ML IV ONE (07:15)
[2018-12-23] MEDS ORDERED: CATHETER FLUSH 10 ML SYR IV PRN (07:30)
--- NOTE | 2018-12-23 07:42 | Progress Note-Pre Operative ---
Pre-Operative Progress Note H&P Reviewed The H&P was reviewed, patient examined and no changes noted. Date Seen by Provider: Dec 23, 2018 Time Seen by Provider: 07:41 Date H&P Reviewed: Dec 23, 2018 Time H&P Reviewed: 07:41 Pre-Operative Diagnosis: RT RENAL STONE MIGUEL A BRADLEY MD Dec 23, 2018 07:42
[2018-12-23] MEDS: LACTATED RINGERS 1,000 ML IV PRN ×2 (07:45→10:19)
[2018-12-23] MEDS ORDERED: LISI10TA2 PO (07:58)
[2018-12-23] MEDS ORDERED: ESOM20CA58 PO (07:58)
[2018-12-23] MEDS ORDERED: ASPI-479 PO (07:58)
[2018-12-23] MEDS ORDERED: FAMOTIDINE 20MG/2ML IV (PEPCID) IV ONE (08:00)
[2018-12-23] MEDS ORDERED: ONDANSETRON 4 MG/2 ML (SDV) Z0FRAN IV ONE (08:00)
[2018-12-23] MEDS ORDERED: fentaNYL INJECTION 100 MCG/2 ML AMP ONE (08:35)
--- NOTE | 2018-12-23 09:05 | Diagnostic Imaging Report ---
INDICATION: Preoperative, renal stones Comparison: 12/03/2018 Technique: Single radiograph of abdomen dated 12/18/2018. Findings: Surgical clips within the right upper quadrant of the abdomen. Multiple calcifications are again identified overlying the bilateral renal shadows, most prominent overlying the inferior pole of the right renal shadow measuring 0.8 cm. Overall, these calcifications appear similar to the prior examination. Phleboliths within the lower pelvis. No new calcification seen along the expected course of the bilateral ureters. Nonspecific bowel gas pattern. Scattered osseous degenerative changes, particularly at L5/S1. No acute osseous abnormality. IMPRESSION: Bilateral renal calculi, appearing similar to the prior examination. Dictated by: Dictated on workstation # [id number]
[2018-12-23] MEDS ORDERED: FUROSEMIDE 40 MG/4 ML INJ (LASIX) ONE (09:37)
[2018-12-23] MEDS ORDERED: KETOROLAC 30 MG/ML VIAL ONE (09:37)
[2018-12-23] MEDS ORDERED: DEXAMETHASONE 10 MG/ML (DECADRON) 1 ML VIAL ONE (09:37)
[2018-12-23] MEDS ORDERED: SEVOFLURANE (ULTANE) 15 ML INHAL SOLN ONE ×4 (09:37→10:12)
[2018-12-23] MEDS ORDERED: proPOfol 200 MG/20 ML (DIPRIVAN) VIAL IV ONE (09:37)
[2018-12-23] MEDS ORDERED: LIDOCAINE PF 2% 5 ML (XYLOCAINE) VIAL ONE (09:37)
--- NOTE | 2018-12-23 09:48 | Progress Note-Post Operative ---
Post-Operative Progess Note Surgeon (s)/Flight Agent (s) Surgeon MIGUEL A BRADLEY MD Flight Agent: NONE Pre-Operative Diagnosis RT RENAL STONE Post-Operative Diagnosis SAME Procedure & Operative Findings Date of Procedure 12/23/18 Procedure Performed/Findings RT ESWL Anesthesia Type GENERAL Estimated Blood Loss Estimated blood loss (mL): NONE Specimens/Packing Specimens Removed NONE Packing: NONE MIGUEL A BRADLEY MD Dec 23, 2018 09:48
--- NOTE | 2018-12-23 09:50 | Discharge Inst-Urology ---
Discharge Inst-Urology Patient Instructions/Follow Up Plan/Assessment/Instructions Please make appointment to been seen in office in 2 weeks. KUB prior to it KUB on way home Post ESWL instructions Increase oral fluids for 48 hours and then as needed. Diet and Activity as tolerated. If questions or concerns contact your physician Or seek help at emergency department. MIGUEL A BRADLEY MD Dec 23, 2018 09:50
[2018-12-23] MEDS ORDERED: morphine INJ 10 MG/ML 1ML (SYR OR VIAL) IVP ONE (10:30)
[2018-12-23] MEDS ORDERED: ONDANSETRON 4 MG/2 ML (SDV) Z0FRAN IVP PRN (10:30)
--- NOTE | 2018-12-23 11:10 | NUR ---
TO AMB SURG FROM PAR PER CART. ALERT, DENIES COMPLAINTS. PO FLUIDS PROVIDED.
--- NOTE | 2018-12-23 11:40 | NUR ---
HAS BEEN TAKING PO FLUIDS WITHOUT PROBLEM AND VOIDING CLEAR, PINK URINE. URINE STRAINED, NO STONE PARTICLES PASSED. DENIES COMPLAINTS, GAIT STEADY WHEN UP WITH ASSIST.
[2018-12-23] MEDS ORDERED: HYDR-3870 PO (12:16)
[2018-12-23] MEDS ORDERED: NITR-65 PO (12:16)
[2018-12-23] MEDS ORDERED: TAMS0.4C98 PO (12:16)
--- NOTE | 2018-12-23 12:26 | Diagnostic Imaging Report ---
INDICATION: Postop ESWL. COMPARISON: 12/23/2018. FINDINGS: Calculi projecting at the lower pole of the right and lower and upper poles of the left kidneys are not substantially changed in appearance. A phlebolith extra-ureteral in the left hemipelvis is chronic. The bowel gas pattern is unremarkable. IMPRESSION: Bilateral nephrolithiases have not substantially changed from the prior exam. No suspected radiodense ureteral coursed stone; otherwise, negative. Dictated by: Dictated on workstation # [id number]
--- NOTE | 2018-12-23 12:30 | NUR ---
CONTINUES TO VOID WITHOUT PROBLEM, URINE CLEAR LIGHT PINK, NO STONE PARTICLES OBTAINED. DENIES COMPLAINTS, ALERT AND CHEERFUL. STATES SHE IS READY FOR DISMISSAL.
--- NOTE | 2018-12-23 13:16 | OPERATIVE REPORT ---
DATE OF SERVICE: 12/23/2018 PREOPERATIVE DIAGNOSIS: Right renal stone. POSTOPERATIVE DIAGNOSIS: Right renal stone. OPERATION PERFORMED: Right ESWL. SURGEON: Nguyễn Bradley MD ANESTHESIA: General. COMPLICATIONS: None. DESCRIPTION OF PROCEDURE: Under satisfactory general anesthesia, the patient in supine position on the ESWL table, the right renal stone was localized. Shocks were delivered at kV of 6, a total of 3000 shocks were delivered. The stone fragmented nicely in layer. The patient received 40 mg of Lasix and 30 mg of Toradol IV at the end of the procedure. She tolerated the procedure and anesthesia well and was sent to recovery room in stable condition. Job ID: [id number] DocumentID: [id number] Dictated Date: 12/23/2018 10:17:04 Administrative Support Assoc Date: 12/23/2018 13:15:02 Dictated By: NGUYỄN BRADLEY MD
--- NOTE | 2018-12-23 14:49 | Anesthesia-General Post-Op ---
General Patient Condition Mental Status/LOC: Same as Preop Cardiovascular: Satisfactory Nausea/Vomiting: Absent Respiratory: Satisfactory Pain: Controlled Complications: Absent Post Op Complications Complications None Follow Up Care/Instructions Patient Instructions None needed. Anesthesia/Patient Condition Patient Condition Patient was seen after the procedure and he was doing well, no complaints, stable vital signs, no apparent adverse anesthesia problems. MACRINA MOULTON DO Dec 23, 2018 14:49
== END 2018-12-23 12:38 | disposition home or self-care (01) ==
LOC: SDC 07:03
PROVIDERS: ATTEND Urology
DX: N20.0 Calculus of kidney (principal); K21.9 Gastro-esophageal reflux disease without esophagitis; E78.5 Hyperlipidemia, unspecified; E07.9 Disorder of thyroid, unspecified; I10 Essential (primary) hypertension
CPT/HCPCS: 74018; 87081

== ENCOUNTER → 2019-01-06 | Outpatient (CLI) | payer MEDICARE, OTHER ==
[~2019-01-06] MED LIST changes: +ASPI-479 PO; +ESOM20CA58 PO
--- NOTE | 2019-01-06 13:19 | Diagnostic Imaging Report ---
INDICATION: Followup renal calculus. COMPARISON: 12/23/2018 FINDINGS: Single frontal radiographic view of the abdomen was obtained and demonstrates a 7 mm extraosseous calcification projecting over the inferior pole of the right renal shadow. Extraosseous calcifications are also seen projecting over the inferior pole of the left renal shadow. Overall, appearance is stable. No unexpected radiopaque foreign bodies are seen. Small bowel loops are nondistended. There is no large collection of free intraperitoneal air. Osseous structures show age-related degenerative changes. IMPRESSION: 1. Persistent bilateral nephrolithiasis. Dictated by: Dictated on workstation # [id number]
== END ==
LOC: RAD 12:51
PROVIDERS: ATTEND Urology
DX: N20.0 Calculus of kidney (principal)
CPT/HCPCS: 74018

== ENCOUNTER 2019-03-05 09:25 | Outpatient (RCR) | payer MEDICARE, OTHER ==
[2019-02-26 11:32] LABS: BASOPHILS % (AUTO) 0 % (0-10); EOSINOPHILS # (AUTO) 0.3 10^3/uL (0.0-0.3); EOSINOPHILS % (AUTO) 2 % (0-10); HEMATOCRIT 38 % (35-52); LYMPHOCYTES % (AUTO) 8 % (12-44); MEAN CORPUSCULAR HEMOGLOBIN 28 PG (25-34); MEAN CORPUSCULAR HGB CONC 32 G/DL (32-36); MEAN CORPUSCULAR VOLUME 88 FL (80-99); MONOCYTES # (AUTO) 1.3 X 10^3 (0.0-1.0); MONOCYTES % (AUTO) 9 % (0-12); NEUTROPHILS # (AUTO) 11.1 X 10^3 (1.8-7.8); NEUTROPHILS % (AUTO) 81 % (42-75); PLATELET COUNT 228 10^3/uL (130-400); RED CELL DISTRIBUTION WIDTH 13.5 % (10.0-14.5); WHITE BLOOD COUNT 13.8 10^3/uL (4.3-11.0)
[2019-02-26 11:51] LABS: ALANINE AMINOTRANSFERASE 17 U/L (0-55); ALBUMIN 4.3 GM/DL (3.2-4.5); ALKALINE PHOSPHATASE 100 U/L (40-136); BILIRUBIN,TOTAL 0.6 MG/DL (0.1-1.0); BUN/CREATININE RATIO 24; CALCIUM 10.1 MG/DL (8.5-10.1); CARBON DIOXIDE 23 MMOL/L (21-32); CHLORIDE 110 MMOL/L (98-107); CREATININE SERUM 0.76 MG/DL (0.60-1.30); GFR ESTIMATED > 60; GLUCOSE 97 MG/DL (70-105); POTASSIUM 4.1 MMOL/L (3.6-5.0); SODIUM 143 MMOL/L (135-145)
[~2019-03-05 09:25] MED LIST changes: +SIMV20TA26 PO; -TAMS0.4C98 PO; +TMSL.4C PO
== END 2019-05-27 | disposition home or self-care (01) ==
LOC: ONC 09:25
PROVIDERS: ATTEND Internal Medicine Hematology & Oncology
DX: D50.9 Iron deficiency anemia, unspecified (principal); Z79.899 Other long term (current) drug therapy
CPT/HCPCS: 36415; 80053; 82728; 84443; 85025; 99213

== ENCOUNTER → 2019-03-11 | Outpatient (CLI) | payer MEDICARE, OTHER ==
[~2019-03-11] MED LIST changes: -SIMV20TA26 PO; +TAMS0.4C98 PO; -TMSL.4C PO
--- NOTE | 2019-03-11 12:24 | Diagnostic Imaging Report ---
INDICATION: Routine screening. Comparison is made with prior mammogram from 03/04/2014. 2-D and 3-D bilateral screening mammography was performed. The current study was also evaluated with a Computer Aided Detection (CAD) system. 3-D tomosynthesis was also performed and reviewed. FINDINGS: Scattered fibroglandular densities are identified bilaterally. Benign parenchymal and vascular calcifications are noted bilaterally. No dominant mass or malignant-appearing microcalcifications are seen. Axillae are unremarkable. IMPRESSION: No mammographic features suspicious for malignancy are identified. ACR BI-RADS Category 2: Benign findings. Result letter will be mailed to the patient. Note: At least 10% of breast cancer is not imaged by mammography. Dictated by: Dictated on workstation # [id number]
== END ==
LOC: RAD 09:32
PROVIDERS: ATTEND Nurse Practitioner Adult Health
DX: Z12.31 Encounter for screening mammogram for malignant neoplasm of breast (principal)
CPT/HCPCS: 77067

== ENCOUNTER 2019-05-11 11:48 | Emergency (ER) | payer MEDICARE, OTHER ==
[~2019-05-11] VITALS: Ht 165 cm; Wt 70.5 kg
[~2019-05-11 11:48] MED LIST changes: +SIMV20TA26 PO; -TAMS0.4C98 PO; +TMSL.4C PO
--- NOTE | 2019-05-11 12:29 | ED Head Injury ---
General Stated Complaint: FALL;HEAD INJ Source: patient Exam Limitations: no limitations History of Present Illness Date Seen by Provider: May 11, 2019 Time Seen by Provider: 12:13 Initial Comments PT ARRIVES VIA POV FROM HOME STATES SHE WAS WALKING OUTSIDE AND TRIPPED OVER SOME FENCING AND FELL FORWARD, HITTING HEAD ON SIDEWALK OCCURRED 30 MINUTES AGO NO LOSS OF CONSCIOUSNESS C/O BAD HEADACHE C/O NAUSEA, NO VOMITING C/O FEELING OFF BALANCE, BUT DOES NOT FEEL DIZZY NO VISION CHANGES NO PARESTHESIAS OR MOTOR DEFICITS NO NECK OR BACK PAIN NO HIP OR KNEE PAIN, NO ARM PAIN PT TOOK 1 BABY ASPIRIN TODAY NO OTHER BLOOD THINNERS PT IMMEDIATELY PLACED IN CERVICAL COLLAR PCP: DR. GOOD--WILL BE SEEING DR. VALDEZ, DR. GOOD IS RETIRING. Allergies and Home Medications Allergies Coded Allergies: No Known Drug Allergies (Unverified , 10/14/17) Home Medications Amlodipine Besylate 5 Mg Tablet, 5 MG PO DAILY, (Reported) Cetirizine HCl 10 Mg Tablet, 10 MG PO DAILY, (Reported) Esomeprazole Magnesium 20 Mg Capsule.dr, 20 MG PO DAILY, (Reported) Hydrocodone/Acetaminophen 1 Each Tablet, 1-2 EACH PO Q4H PRN for PAIN-MODERATE Prescribed by: GIOVANNA PILLAI on 12/23/181215 Levothyroxine Sodium 50 Mcg Tablet, 50 MCG PO DAILY, (Reported) Lisinopril 10 Mg Tablet, 10 MG PO DAILY, (Reported) Metoprolol Succinate 25 Mg Tab.er.24h, 25 MG PO DAILY, (Reported) Multivitamin 1 Each Tablet, 1 EACH PO DAILY, (Reported) Nitrofurantoin Monohyd/M-Cryst 100 Mg Capsule, 1 TAB PO BID Prescribed by: GIOVANNA PILLAI on 12/23/181215 Simvastatin 20 Mg Tablet, 20 MG PO DAILY, (Reported) Tamsulosin HCl 0.4 Mg Cap, 0.4 MG PO DAILY Prescribed by: GIOVANNA PILLAI on 12/23/181215 Patient Home Medication List Home Medication List Reviewed: Yes Review of Systems Review of Systems Constitutional: no symptoms reported Eyes: Denies Blurred Vision, Denies Photophobia, Denies Vision Changes; Other (LEFT PERIORBITAL HEMATOMA) Ears, Nose, Mouth, Throat: denies nose pain, denies epistaxis, denies mouth pain, denies loose teeth Respiratory: no symptoms reported Cardiovascular: no symptoms reported Gastrointestinal: no symptoms reported Genitourinary: no symptoms reported Musculoskeletal: no symptoms reported Skin: other (ABRASION TO LEFT BROW AREA) Psychiatric/Neurological: See HPI; Denies Cognitive Dysfunction; Headache; Denies Numbness, Denies Tingling Endocrine: No Symptoms Reported Hematologic/Lymphatic: No Symptoms Reported Past Ajkrwvb-Wjkqtw-Moakds Hx Patient Social History Alcohol Use: Denies Use Recreational Drug Use: No Smoking Status: Never a Smoker Recent Hopitalizations: No Immunizations Up To Date Tetanus Booster (TDap): More than 5yrs Date of Pneumonia Vaccine: Mar 09, 2015 Date of Influenza Vaccine: Feb 11, 2017 Seasonal Allergies Seasonal Allergies: Yes Past Medical History Surgeries: Yes (LAP ANTHONY;R KNEE SCOPE; BLADDER SUSPENSION; MITRAL VALVE REPAIR; ESWL) Abdominal, Cardiac, Gallbladder, Hysterectomy, Oophorectomy, Orthopedic Respiratory: No Cardiac: Yes (MITRAL VALVE REPAIR DUE TO RHEUMATIC FEVER TEEN) High Cholesterol, Hypertension, Rheumatic Fever, Valvular Heart Disease Neurological: No Reproductive Disorders: No SWITCHBOARD OPERATOR ASSISTANT History: Hysterectomy (BSO), Menopausal Sexually Transmitted Disease: No HIV/AIDS: No Genitourinary: Yes Kidney Stones Gastrointestinal: Yes (LAP ANTHONY FUNDOPLICATION; CHOLECYSTECTOMY) Gastroesophageal Reflux, Hiatal Hernia, Gall Bladder Disease Musculoskeletal: Yes (SPINAL STENOSIS; LEFT KNEE SCOPE) Arthritis, Chronic Back Pain Endocrine: Yes Hypothyroidsim HEENT: No Loss of Vision: Bilateral Hearing Impairment: Denies Cancer: No Psychosocial: No Integumentary: Yes Eczema Blood Disorders: Yes (ANEMIA) Adverse Reaction/Blood Tranf: No (HAS HAD BLOOD WITH NO REACTION) Physical Exam Vital Signs Vital Signs - First Documented 05/11/19 12:12 Temp 36.6 Pulse 64 Resp 17 B/P (MAP) 169/79 (109) Pulse Ox 97 O2 Delivery Room Air Capillary Refill : Height, Weight, BMI Height: 5'5.00" Weight: 154lbs. 0.0oz. [id number]; 25.6 BMI Method:Stated General Appearance: WD/WN, no apparent distress HEENT: PERRL/EOMI, TMs normal, pharynx normal, other (LARGE HEMATOMA TO LEFT FOREHEAD AND PERIORBITAL AREA WITH MINOR ABRASION TO THE AREA, NO ACTIVE BLEEDING. ) Neck: non-tender, full range of motion, supple, normal inspection Cardiovascular: regular rate, rhythm, no murmur Respiratory: chest non-tender, normal breath sounds, no respiratory distress Gastrointestinal: normal bowel sounds, non tender, soft Back: normal inspection, no CVA tenderness, no vertebral tenderness Extremities: normal range of motion, non-tender, normal inspection, no pedal edema, no calf tenderness, normal capillary refill Psychiatric: alert, oriented x 3 Crainal Nerves: normal hearing, normal speech, PERRL Motor/Sensory: no motor deficit, no sensory deficit, no pronator drift Skin: normal color, warm/dry, ecchymosis Progress/Results/Core Measures Results/Orders My Orders Orders - BRYSON GLYNN DO Ct Head/Face/Cervical Wo (05/11/19 12:21) Dipht,Pertuss(Acell),Tet Adult (Boostrix (05/11/19 12:30) Ondansetron Oral Dissolve Tab (Zofran (05/11/19 12:30) Cervical Collar (05/11/19 12:23) Ed Iv/Invasive Line Start (05/11/19 13:07) Monitor-Rhythm Ecg Trace Only (05/11/19 13:07) Cbc With Automated Diff (05/11/19 13:07) Comprehensive Metabolic Panel (05/11/19 13:07) Protime With Inr (05/11/19 13:07) Partial Thromboplastin Time (05/11/19 13:07) Ed Iv/Invasive Line Start (05/11/19 13:07) Fentanyl Injection (Sublimaze Injection (05/11/19 13:07) Ns (Ivpb) (Sodium C... W/Nicardipine Iv (05/11/19 13:30) Ns (Ivpb) (Sodium C... W/Nicardipine Iv (05/11/19 13:45) Medications Given in ED Current Medications Medications Dose Ordered Sig/Oracio Route Start Time Stop Time Status Last Admin Dose Admin Diphtheria/ Tetanus/Acell Pertussis 0.5 ml ONCE ONCE IM 05/11/19 12:30 05/11/19 12:31 DC 05/11/19 13:06 0.5 ML Nicardipine HCl 2.5 mg/Sodium Chloride 50 ml @ 100 mls/hr Q30M ONCE IV 1/13/20 13:45 05/11/19 13:51 DC 05/11/19 13:47 100 MLS/HR Ondansetron HCl 4 mg ONCE ONCE PO 05/11/19 12:30 05/11/19 12:31 DC 05/11/19 13:05 4 MG Vital Signs/I&O 05/11/19 05/11/19 12:12 13:50 Temp 36.6 36.6 Pulse 64 72 Resp 17 17 B/P (MAP) 169/79 (109) 161/79 (109) Pulse Ox 97 98 O2 Delivery Room Air Room Air Progress Progress Note : Progress Note NO DETERIORATION IN PT'S CONDITION DURING ER STAY GIVEN CARDENE FOR ELEVATED BP Diagnostic Imaging Comments CT HEAD/MAXILLOFACIALS/CERVICAL SPINE--6 MM SUBDURAL HEMATOMA, RIGHT FRONTAL LOBE--EXTENDING ALONG THE ENTIRE ANTERIOR HALF OF RIGHT FRONTAL LOBE. NO FRACT URE. NO MIDLINE SHIFT. DEGENERATIVE CHANGES OF CERVICAL SPINE, NO ACUTE CERVICAL SPINE ABNORMALITY--PER RADIOLOGIST VIA PHONE AT 1300. Reviewed: Reviewed by Me Departure Communication (Admissions) Family Conversation 1315--SPOKE WITH PT'S DAUGHTER, AT PT'S REQUEST, WHO IS AN ER PHYSICIAN IN [facility]PART[facility], AND INFORMED HER OF PT'S CONDITION AND PLAN OF CARE. 1305--CALLED [place], SPOKE WITH DR. HONG, ER PHYSICIAN, ACCEPTS PT FOR TRANSFER. Impression Primary Impression: ACUTE TRAUMATIC SUBDURAL HEMATOMA Additional Impressions: S/P FALL FROM STANDING HTN (hypertension) Disposition: 02 XFER SHT-TRM HOSP Condition: Stable Transfer Transfer Reason: Exceeds level of care Transfer Facility: [facility] [place] Method of Transfer: EMS Departure-Patient Inst. Referrals: CYNTHIA GOOD MD (PCP/Family) Primary Care Physician BRYSON GLYNN DO May 11, 2019 12:29
[2019-05-11] MEDS ORDERED: ONDANSETRON 4 MG (ZOFRAN) ORAL DISSOLVE TAB PO ONE (12:30)
[2019-05-11] MEDS ORDERED: TETANUS,DIPTH,PERTUSS P/F (BOOSTRIX) 0.5 ML VIAL IM ONE (12:30)
--- NOTE | 2019-05-11 13:04 | Diagnostic Imaging Report ---
PROCEDURE: CT head, face, and cervical spine without contrast. TECHNIQUE: Multiple contiguous axial images were obtained through the head, neck, and facial bones without the use of intravenous contrast. Sagittal and coronal reformations through the cervical spine and facial bones were also performed. Auto Exposure Controls were utilized during the CT exam to meet ALARA standards for radiation dose reduction. INDICATION: Fall. Facial injury. COMPARISON: None. FINDINGS: CT HEAD AND MAXILLOFACIAL: Hyperattenuating extra-axial fluid overlying the right frontal lobe measures up to 0.6 cm in thickness consistent with subdural hemorrhage. No other intracranial hemorrhage is identified. No hydrocephalus or significant mass effect. No CT evidence of a territorial infarction. Scalp contusion overlying the left frontal bone. No fractures. Mild mucosal thickening in the posterior right ethmoid sinuses. Mastoids are clear. Normal alignment of the temporomandibular joints. CT CERVICAL SPINE: Grade 1 anterolisthesis of C3 on C4. Reversal of the normal cervical lordosis centered at C5. Vertebral body heights are preserved. No fractures. Moderate degenerative endplate changes are greatest at C4-C7. Posterior disc osteophyte complexes result in at least mild spinal canal narrowing at C5-C6 and C6-C7. Biapical scarring. The visualized paravertebral soft tissues are unremarkable. IMPRESSION: 1. Acute-appearing subdural hemorrhage overlying the right frontal lobe measuring up to 0.6 cm in thickness. 2. Scalp contusion overlying the left frontal bone. No underlying fractures. 3. No acute CT findings in the cervical spine. Chronic findings as above. Findings were discussed with Dr. Honey Carreon at 12:59 p.m. on 05/11/2019. Dictated by: Dictated on workstation # [id number]
[2019-05-11] MEDS ORDERED: fentaNYL INJECTION 100 MCG/2 ML AMP IVP STA (13:07)
[2019-05-11] MEDS ORDERED: niCARdipine IV 50 MG in NS (IVPB) 230 ML IV SCH (13:30)
[2019-05-11] MEDS ORDERED: NS IV ONE (13:45)
[2019-05-11] MEDS ORDERED: NICARDIPINE IV ONE (13:45)
[2019-05-11 13:50] VITALS: BP 161/79
== END 2019-05-11 13:50 | disposition short-term general hospital (02) ==
LOC: EDUNIT# 11:48 → ER 11:49
DX: S06.5X0A Traumatic subdural hemorrhage without loss of consciousness, initial encounter (principal); I10 Essential (primary) hypertension; E78.00 Pure hypercholesterolemia, unspecified; E03.9 Hypothyroidism, unspecified; D64.9 Anemia, unspecified; K21.9 Gastro-esophageal reflux disease without esophagitis; Z23 Encounter for immunization; Z87.442 Personal history of urinary calculi; Z90.49 Acquired absence of other specified parts of digestive tract; Z90.710 Acquired absence of both cervix and uterus; W01.198A Fall on same level from slipping, tripping and stumbling with subsequent striking against other object, initial encounter
CPT/HCPCS: 70450; 70486; 72125; 90471; 90715; 93041; 96374; 96375

== ENCOUNTER → 2019-06-18 | Outpatient (CLI) | payer MEDICARE, OTHER ==
--- NOTE | 2019-06-18 11:10 | Diagnostic Imaging Report ---
EXAMINATION: Supine abdomen at 10:59 a.m. INDICATION: Nephrolithiasis. FINDINGS: The prior exam of 01/06/2019 noted calculi overlying both kidneys. On this exam, the calcifications overlying the inferior pole of the left kidney are better visualized. These calcifications now measure approximately 13.3 mm. The 7 mm calcification overlying the right kidney seen previously is again evident and no different. There is also a 4.6 mm calcification overlying the superior pole of the left kidney. This was present on the prior exam and has not changed. However, I am not certain that this is within the kidney. There is no other pathological calcification seen. There is no sign of a calculus along the expected paths of the ureters. The small expected phlebolith low in the pelvis on the left seen previously is again evident and no different. There is gas in both the large and small bowel in a nonspecific fashion. There is no sign of a bowel obstruction. There is no mass or organomegaly appreciated. The osseous structures are intact. Surgical clips are again seen in the right upper quadrant. IMPRESSION: 1. The calcifications overlying the kidneys seen previously are again evident and appear stable. There is still no evidence for a calculus along the expected paths of the ureters. 2. If clinical concern regarding acute obstruction of either collecting system exists, however, then CT would be recommended for further study. Dictated by: Dictated on workstation # [id number]
== END ==
LOC: LAB 10:27
PROVIDERS: ATTEND Urology
DX: N28.89 Other specified disorders of kidney and ureter (principal); Z87.442 Personal history of urinary calculi
CPT/HCPCS: 74018

== ENCOUNTER 2019-09-15 13:48 | Outpatient (RCR) | payer MEDICARE, OTHER ==
[2019-06-18 10:45] LABS: BASOPHILS % (AUTO) 0 % (0-10); EOSINOPHILS # (AUTO) 0.3 10^3/uL (0.0-0.3); EOSINOPHILS % (AUTO) 4 % (0-10); HEMATOCRIT 35 % (35-52); HEMOGLOBIN 11.3 G/DL (11.5-16.0); LYMPHOCYTES # (AUTO) 1.6 X 10^3 (1.0-4.0); LYMPHOCYTES % (AUTO) 22 % (12-44); MEAN CORPUSCULAR HEMOGLOBIN 29 PG (25-34); MEAN CORPUSCULAR HGB CONC 32 G/DL (32-36); MEAN CORPUSCULAR VOLUME 89 FL (80-99); MONOCYTES # (AUTO) 0.7 X 10^3 (0.0-1.0); MONOCYTES % (AUTO) 10 % (0-12); NEUTROPHILS # (AUTO) 4.5 X 10^3 (1.8-7.8); NEUTROPHILS % (AUTO) 64 % (42-75); PLATELET COUNT 226 10^3/uL (130-400); WHITE BLOOD COUNT 7.1 10^3/uL (4.3-11.0)
[2019-09-10 12:10] LABS: BASOPHILS % (AUTO) 0 % (0-10); EOSINOPHILS # (AUTO) 0.5 10^3/uL (0.0-0.3); EOSINOPHILS % (AUTO) 6 % (0-10); HEMATOCRIT 38 % (35-52); HEMOGLOBIN 12.3 G/DL (11.5-16.0); LYMPHOCYTES # (AUTO) 1.6 X 10^3 (1.0-4.0); LYMPHOCYTES % (AUTO) 20 % (12-44); MEAN CORPUSCULAR HEMOGLOBIN 29 PG (25-34); MEAN CORPUSCULAR HGB CONC 33 G/DL (32-36); MEAN CORPUSCULAR VOLUME 88 FL (80-99); MONOCYTES # (AUTO) 0.8 X 10^3 (0.0-1.0); MONOCYTES % (AUTO) 10 % (0-12); NEUTROPHILS # (AUTO) 5.1 X 10^3 (1.8-7.8); NEUTROPHILS % (AUTO) 63 % (42-75); PLATELET COUNT 232 10^3/uL (130-400); RED CELL DISTRIBUTION WIDTH 13.5 % (10.0-14.5); WHITE BLOOD COUNT 8.1 10^3/uL (4.3-11.0)
[2019-09-10 12:28] LABS: ALANINE AMINOTRANSFERASE 12 U/L (0-55); ALBUMIN 4.2 GM/DL (3.2-4.5); ALKALINE PHOSPHATASE 125 U/L (40-136); BILIRUBIN,TOTAL 0.3 MG/DL (0.1-1.0); BUN/CREATININE RATIO 25; CALCIUM 9.6 MG/DL (8.5-10.1); CARBON DIOXIDE 26 MMOL/L (21-32); CHLORIDE 109 MMOL/L (98-107); CREATININE SERUM 0.83 MG/DL (0.60-1.30); GFR ESTIMATED > 60; GLUCOSE 95 MG/DL (70-105); POTASSIUM 4.4 MMOL/L (3.6-5.0); SODIUM 141 MMOL/L (135-145)
[~2019-09-15 13:48] MED LIST changes: -CETI10TA20 PO; +CETI10TA21 PO
== END 2019-09-16 | disposition home or self-care (01) ==
LOC: ONC 13:48
PROVIDERS: ATTEND Internal Medicine Hematology & Oncology
DX: D50.9 Iron deficiency anemia, unspecified (principal); Z79.899 Other long term (current) drug therapy
CPT/HCPCS: 80053; 82728; 85025; 99213

== ENCOUNTER 2019-10-26 20:47 | Emergency (ER) | payer MEDICARE, OTHER ==
[~2019-10-26] VITALS: Ht 165 cm; Wt 75.0 kg
[~2019-10-26 20:47] MED LIST changes: +MULT-567 PO; -MULT1TAB69 PO
--- NOTE | 2019-10-26 21:33 | Diagnostic Imaging Report ---
EXAMINATION: Right wrist 3 or more views HISTORY: Trauma COMPARISON: None available. FINDINGS: There is a dorsally angulated distal right radial fracture extending into distal radioulnar joint. There is a mildly displaced ulnar styloid process fracture. There is moderate right first carpometacarpal joint osteoarthritis. IMPRESSION: 1. Dorsally angulated right distal radial fracture and mildly displaced right ulnar styloid process fracture. Dictated by: Dictated on workstation # [id number]
[2019-10-26] MEDS ORDERED: ACETAMINOPHEN 500 MG TAB (TYLENOL) PO STA (22:23)
--- NOTE | 2019-10-26 22:38 | ED Upper Extremity ---
General Chief Complaint: Upper Extremity Stated Complaint: R WRIST INJ Nursing Triage Note: PT PRESENTS WITH CC OF R WRIST PAIN AFTER WALKING DOG THIS EVENING, DOG RAN AFTER ANOTHER ANIMAL PULLING HER WRIST WITH THE LEASH. SWELLING AND SLIGHT DEFORMITY NOTED. SENSATION INTACT AT THIS TIME. Nursing Sepsis Screen: No Definite Risk Source: patient Exam Limitations: no limitations History of Present Illness Date Seen by Provider: Oct 26, 2019 Time Seen by Provider: 21:11 Initial Comments Here with report of right wrist pain after falling while walking the dog tonight. States that she had the leash wrapped around her arm and the dogs a hard. This caused her fall. She felt a pop when the dogs pulled hard and then she hit the ground. Denies other significant injury. Has obvious deformity to the right wrist. Sensation intact. Onset: just prior to arrival (approximately one hour ago) Severity: moderate Pain/Injury Location: right wrist Method of Injury: fell Modifying Factors: Improves With Immobilization; Worse With Movement Allergies and Home Medications Allergies Coded Allergies: No Known Drug Allergies (Unverified , 10/14/17) Home Medications Amlodipine Besylate 5 Mg Tablet, 5 MG PO DAILY, (Reported) Cetirizine HCl 10 Mg Tablet, 10 MG PO DAILY, (Reported) Esomeprazole Magnesium 20 Mg Capsule.dr, 20 MG PO DAILY, (Reported) Hydrocodone/Acetaminophen 1 Each Tablet, 1-2 EACH PO Q4H PRN for PAIN-MODERATE Prescribed by: GIOVANNA PILLAI on 12/23/181215 Levothyroxine Sodium 50 Mcg Tablet, 50 MCG PO DAILY, (Reported) Lisinopril 10 Mg Tablet, 10 MG PO DAILY, (Reported) Metoprolol Succinate 25 Mg Tab.er.24h, 25 MG PO DAILY, (Reported) Multivitamin 1 Each Tablet, 1 EACH PO DAILY, (Reported) Nitrofurantoin Monohyd/M-Cryst 100 Mg Capsule, 1 TAB PO BID Prescribed by: GIOVANNA PILLAI on 12/23/181215 Simvastatin 20 Mg Tablet, 20 MG PO DAILY, (Reported) Tamsulosin HCl 0.4 Mg Cap, 0.4 MG PO DAILY Prescribed by: GIOVANNA PILALI on 12/23/181215 Patient Home Medication List Home Medication List Reviewed: Yes Review of Systems Constitutional: see HPI Respiratory: no symptoms reported Cardiovascular: no symptoms reported Musculoskeletal: joint pain, joint swelling Skin: change in color; No lesions Psychiatric/Neurological: No Symptoms Reported Past Umsxvyx-Dljauc-Ztoleo Hx Past Med/Social Hx: Reviewed Nursing Past Med/Soc Hx Patient Social History Alcohol Use: Denies Use Recreational Drug Use: No Smoking Status: Never a Smoker 2nd Hand Smoke Exposure: No Recent Foreign Travel: No Contact w/Someone Who Travel: No Recent Infectious Disease Expo: No Recent Hopitalizations: No Physical Abuse: No Sexual Abuse: No Mistreated: No Fear: No Immunizations Up To Date Tetanus Booster (TDap): More than 5yrs Date of Pneumonia Vaccine: Mar 09, 2015 Date of Influenza Vaccine: Feb 11, 2017 Seasonal Allergies Seasonal Allergies: Yes Past Medical History Surgeries: Yes (LAP ANTHONY;R KNEE SCOPE; BLADDER SUSPENSION; MITRAL VALVE REPAIR; ESWL) Abdominal, Cardiac, Gallbladder, Hysterectomy, Oophorectomy, Orthopedic Respiratory: No Cardiac: Yes (MITRAL VALVE REPAIR DUE TO RHEUMATIC FEVER TEEN) High Cholesterol, Hypertension, Rheumatic Fever, Valvular Heart Disease Neurological: No 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, Menopausal Sexually Transmitted Disease: No HIV/AIDS: No Genitourinary: Yes Kidney Stones Gastrointestinal: Yes (LAP ANTHONY FUNDOPLICATION; CHOLECYSTECTOMY) Gastroesophageal Reflux, Hiatal Hernia, Gall Bladder Disease Musculoskeletal: Yes (SPINAL STENOSIS; LEFT KNEE SCOPE) Arthritis, Chronic Back Pain Endocrine: Yes Hypothyroidsim HEENT: No Loss of Vision: Bilateral Hearing Impairment: Denies Cancer: No Psychosocial: No Integumentary: Yes Eczema Blood Disorders: Yes (ANEMIA) Adverse Reaction/Blood Tranf: No (HAS HAD BLOOD WITH NO REACTION) Family Medical History Reviewed Nursing Family Hx Physical Exam Vital Signs Vital Signs - First Documented 10/26/19 21:03 Temp 36.8 Pulse 78 Resp 16 B/P (MAP) 133/90 (104) Pulse Ox 95 O2 Delivery Room Air Capillary Refill : Less Than 3 Seconds Height, Weight, BMI Height: 5'5.00" Weight: 154lbs. 0.0oz. 69.359182tp; 27.00 BMI Method:Stated General Appearance: WD/WN, no apparent distress Neck: full range of motion, supple Cardiovascular: regular rate, rhythm, no murmur Respiratory: lungs clear, normal breath sounds Gastrointestinal: non tender, soft Back: normal inspection, no CVA tenderness, no vertebral tenderness Wrist: Yes deformity, Yes ecchymosis, Yes limited ROM, Yes pain, Yes soft tissue tenderness, Yes swelling (all findings at the wrist both radial and ulnar surfaces laterally.) Hand: normal ROM, Right Neurologic/Tendon: normal sensation, normal motor functions Neurologic/Psychiatric: alert, oriented x 3 Skin: warm/dry, ecchymosis (right wrist) Procedures/Interventions Splinting and Joint Reduction : Pre-Proc Neuro Vasc Exam: normal Post-Proc Neuro Vasc Exam: normal Arm Sling: Medium (she) Hand-Made Type: orthoglass Splint Application: Short Arm (sugar tong) Progress/Results/Core Measures Results/Orders My Orders Orders - KARLA LEMONS MD Wrist, Right, 3 Views Or More (10/26/19 21:11) Acetaminophen Tablet (Tylenol Tablet) (10/26/19 22:23) Vital Signs/I&O 10/26/19 21:03 Temp 36.8 Pulse 78 Resp 16 B/P (MAP) 133/90 (104) Pulse Ox 95 O2 Delivery Room Air Blood Pressure Mean: 104 Progress Progress Note : Progress Note Seen and evaluated. Right wrist x-ray ordered. I expect given. Patient declined pain medicine. 2229: Ulnar and radial fracture noted distal right. Tylenol 1 g by mouth given. We will splint. I did discuss the case with Dr. Mireles and he will see the patient in clinic. 2325: Splint placed and patient tolerated well. Sling placed. Discharged home with return precautions. Patient verbalize understanding instructions and agreement with plan. Diagnostic Imaging Diagonstic Imaging: Xray Plain Films/CT/US/NM/MRI: other Comments [facility], [place] NAME: CRISTALLENCHORYAN [facility] REC#: [id number] PT STATUS: REG ER : 1945 PHYSICIAN: KARLA LEMONS MD ADMIT DATE: 10/26/19/ER Signed Date of Exam:10/26/19 WRIST, RIGHT, 3 VIEWS OR MORE EXAMINATION: Right wrist 3 or more views HISTORY: Trauma COMPARISON: None available. FINDINGS: There is a dorsally angulated distal right radial fracture extending into distal radioulnar joint. There is a mildly displaced ulnar styloid process fracture. There is moderate right first carpometacarpal joint osteoarthritis. IMPRESSION: 1. Dorsally angulated right distal radial fracture and mildly displaced right ulnar styloid process fracture. Dictated by: Dictated on workstation # [id number] Dict: 10/26/192129 Trans: 10/26/192151 [facility] [id number] Interpreted by: ADRIAN HYDE MD Electronically signed by: ADRIAN HYDE MD 10/26/192151 Departure Impression Primary Impression: Fracture of ulna with radius, closed Qualified Codes: S52.91XA - Unspecified fracture of right forearm, initial encounter for closed fracture; S52.201A - Unspecified fracture of shaft of right ulna, initial encounter for closed fracture Disposition: HOME, SELF-CARE Condition: Stable Departure-Patient Inst. Decision time for Depature: 22:37 Referrals: YUMIKO VALDEZ DO (PCP/Family) Primary Care Physician PEACE MIRELES MD Patient Instructions: Forearm Fracture (DC) Add. Discharge Instructions: All discharge instructions reviewed with patient and/or family. Voiced understanding. You may take Tylenol/acetaminophen 1000 mg every 6-8 hours as needed for pain. Call Dr. Mireles first thing in the morning for appointment. Use sling for comfort. You may use ice pack over area concern 20 minutes per hour as needed for swelling and pain. Use elevation for the next one to 2 days to reduce swelling and pain. Return for worse pain, swelling, numbness or other concerns as needed. Copy Copies To 1: PEACE MIRELES MD, TIMOTHY D MD Oct 26, 2019 22:38
[2019-10-26 23:29] VITALS: BP 133/90
== END 2019-10-26 23:31 | disposition home or self-care (01) ==
LOC: EDUNIT# 20:47 → ER 20:48
DX: S52.611A Displaced fracture of right ulna styloid process, initial encounter for closed fracture (principal); S52.591A Other fractures of lower end of right radius, initial encounter for closed fracture; K21.9 Gastro-esophageal reflux disease without esophagitis; K44.9 Diaphragmatic hernia without obstruction or gangrene; M54.9 Dorsalgia, unspecified; E03.9 Hypothyroidism, unspecified; L30.9 Dermatitis, unspecified; D64.9 Anemia, unspecified; Z95.2 Presence of prosthetic heart valve; Z90.710 Acquired absence of both cervix and uterus; Z90.722 Acquired absence of ovaries, bilateral; W18.30XA Fall on same level, unspecified, initial encounter; Y93.K1 Activity, walking an animal
CPT/HCPCS: 73110

== ENCOUNTER → 2019-10-29 | Outpatient (CLI) | payer MEDICARE, OTHER ==
--- NOTE | 2019-10-29 10:21 | Diagnostic Imaging Report ---
INDICATION: Follow-up right wrist fracture. Time of exam 9:25 AM Correlation is made with prior radiograph from 10/26/2019. Fiberglass cast has been placed, obscuring bone detail. The impacted distal radius fracture is again noted. There is very slight dorsal displacement of the distal radius fracture fragment, similar to prior exam. No significant angulation is seen. Ulnar fracture seen on prior exam is not as well visualized on this exam. Degenerative changes at the carpus, triscaphe and 1st CMC joints is again seen. IMPRESSION: Distal radius and ulnar fractures, placement of fiberglass cast. Overall alignment is near-anatomic with slight dorsal displacement of the distal radius fracture fragment. Dictated by: Dictated on workstation # [id number]
--- NOTE | 2019-10-29 10:53 | Diagnostic Imaging Report ---
INDICATION: Distal radius fracture. Patient status post new cast placement. Time of exam 10:37 AM Correlation is made with prior radiograph earlier the same day. Impacted distal radius fracture is again noted. Alignment of the distal radius does appear to be improved. A new cast has been placed reportedly. Alignment is now near-anatomic. Distal ulnar fracture is not as well seen. IMPRESSION: Distal radius fracture demonstrating improved alignment which is now near-anatomic when compared with radiographs earlier the same day. Dictated by: Dictated on workstation # [id number]
== END ==
LOC: ORTHO 09:10
PROVIDERS: ATTEND Orthopaedic Surgery
DX: S52.511A Displaced fracture of right radial styloid process, initial encounter for closed fracture (principal); S52.91XA Unspecified fracture of right forearm, initial encounter for closed fracture
CPT/HCPCS: 29065; 73100; 73110

== ENCOUNTER → 2019-11-04 | Outpatient (CLI) | payer MEDICARE, OTHER ==
--- NOTE | 2019-11-04 10:20 | Diagnostic Imaging Report ---
EXAMINATION: Right wrist, 2 views. INDICATION: Follow-up distal radius/ulna fractures. COMPARISON: Multiple priors, most recent performed on 10/29/2019. FINDINGS: Casting material remains in place, limiting detailed evaluation. Impacted distal radius fracture is again demonstrated, with no significant change in mild dorsal and radial displacement of the distal fracture fragment. No significant change in periosteal reaction involving the distal radius fracture. Distal ulnar fracture is also again demonstrated, with suggestion of mild periosteal reaction along the medial aspect of the fracture fragment. No new fracture or acute osseous abnormality is appreciated. Soft tissues are unremarkable. IMPRESSION: No significant change in impacted mildly displaced fracture of the distal radius. Mild periosteal reaction involving the distal ulnar fracture, which is otherwise also not significantly changed. Dictated by: Dictated on workstation # [id number]
== END ==
LOC: ORTHO 09:02
PROVIDERS: ATTEND Orthopaedic Surgery
DX: S52.501D Unspecified fracture of the lower end of right radius, subsequent encounter for closed fracture with routine healing (principal); S52.601D Unspecified fracture of lower end of right ulna, subsequent encounter for closed fracture with routine healing; X58.XXXD Exposure to other specified factors, subsequent encounter
CPT/HCPCS: 73100

== ENCOUNTER → 2019-11-12 | Outpatient (CLI) | payer MEDICARE, OTHER ==
--- NOTE | 2019-11-12 09:52 | Diagnostic Imaging Report ---
INDICATION: Follow-up distal radius fracture. Time of exam: 9:30 AM Correlation is made with prior radiographs from 11/04/2019. Cast material obscures bone detail. Distal radius fracture is again noted. Overall alignment appears to be stable. Fracture line remains clearly visible. Degenerative changes of the carpus and 1st CMC joints are noted. IMPRESSION: Stable distal radius fracture when compared with prior exam. Fracture lines remain visible. Dictated by: Dictated on workstation # [id number]
== END ==
LOC: ORTHO 09:11
PROVIDERS: ATTEND Orthopaedic Surgery
DX: S52.511D Displaced fracture of right radial styloid process, subsequent encounter for closed fracture with routine healing (principal)
CPT/HCPCS: 73100

== ENCOUNTER → 2019-11-26 | Outpatient (CLI) | payer MEDICARE, OTHER ==
--- NOTE | 2019-11-26 10:47 | Diagnostic Imaging Report ---
INDICATION: Fracture. Exam compared with study 11/12/2019 FINDINGS: Impacted distal radial fracture shows improvements in lateral/radial displacement of the distal fragment. No adverse development. Fracture at the base of the ulnar styloid in unchanged alignment. 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 There is no new fracture. IMPRESSION: Impacted distal radial fracture shows some further new bone formation and improvement in alignment with no adverse development or new injury evident. Dictated by: Dictated on workstation # [id number]
== END ==
LOC: ORTHO 09:12
PROVIDERS: ATTEND Orthopaedic Surgery
DX: S52.511D Displaced fracture of right radial styloid process, subsequent encounter for closed fracture with routine healing (principal)
CPT/HCPCS: 29075; 73100

== ENCOUNTER → 2019-12-23 | Outpatient (CLI) | payer MEDICARE, OTHER ==
--- NOTE | 2019-12-23 12:27 | Diagnostic Imaging Report ---
INDICATION: Follow-up distal radius fracture. TIME OF EXAM: 10:36 AM Correlation is made with prior radiograph from 12/09/2019. FINDINGS: Hand and wrist is diffusely demineralized. Impacted fracture of the distal radius is again noted. There is some callus formation consistent with some healing although fracture line does remain visible. There also appears to be fractured ulnar styloid. Carpus and metacarpals are unremarkable apart from degenerative changes at the 1st CMC joint. IMPRESSION: Healing distal radius and ulnar fractures, similar to examination from 12/09/2019. Dictated by: Dictated on workstation # [id number]
== END ==
LOC: ORTHO 10:21
PROVIDERS: ATTEND Orthopaedic Surgery
DX: S52.511D Displaced fracture of right radial styloid process, subsequent encounter for closed fracture with routine healing (principal); S52.601D Unspecified fracture of lower end of right ulna, subsequent encounter for closed fracture with routine healing
CPT/HCPCS: 73100

== ENCOUNTER → 2020-01-13 | Outpatient (CLI) | payer MEDICARE, OTHER ==
[~2020-01-13] MED LIST changes: -CETI10TA21 PO; +CETI10TA49 PO
== END ==
LOC: ORTHO 09:46
PROVIDERS: ATTEND Orthopaedic Surgery
DX: S52.511A Displaced fracture of right radial styloid process, initial encounter for closed fracture (principal); Z98.890 Other specified postprocedural states

== ENCOUNTER 2020-01-28 11:14 | Outpatient (RCR) | payer MEDICARE, OTHER | END 2020-01-28 12:10 | disposition home or self-care (01) | PROVIDERS: ATTEND Orthopaedic Surgery | DX: S52.511D Displaced fracture of right radial styloid process, subsequent encounter for closed fracture with routine healing (principal); X58.XXXD Exposure to other specified factors, subsequent encounter ==

== ENCOUNTER → 2020-02-26 | Outpatient (CLI) | payer MEDICARE, OTHER ==
[2020-02-26 13:00] LABS: BASOPHILS % (AUTO) 0 % (0-10); EOSINOPHILS # (AUTO) 0.4 10^3/uL (0.0-0.3); EOSINOPHILS % (AUTO) 5 % (0-10); HEMATOCRIT 37 % (35-52); HEMOGLOBIN 11.7 g/dL (11.5-16.0); LYMPHOCYTES # (AUTO) 1.8 10^3/uL (1.0-4.0); LYMPHOCYTES % (AUTO) 19 % (12-44); MEAN CORPUSCULAR HEMOGLOBIN 28 pg (25-34); MEAN CORPUSCULAR HGB CONC 32 g/dL (32-36); MEAN CORPUSCULAR VOLUME 88 fL (80-99); MONOCYTES # (AUTO) 0.9 10^3/uL (0.0-1.0); MONOCYTES % (AUTO) 10 % (0-12); NEUTROPHILS # (AUTO) 6.1 10^3/uL (1.8-7.8); NEUTROPHILS % (AUTO) 66 % (42-75); PLATELET COUNT 235 10^3/uL (130-400); WHITE BLOOD COUNT 9.2 10^3/uL (4.3-11.0)
[2020-02-26 13:21] LABS: ALANINE AMINOTRANSFERASE 15 U/L (0-55); ALBUMIN 4.2 GM/DL (3.2-4.5); ALKALINE PHOSPHATASE 117 U/L (40-136); BILIRUBIN,TOTAL 0.4 MG/DL (0.1-1.0); BUN/CREATININE RATIO 24; CALCIUM 9.5 MG/DL (8.5-10.1); CARBON DIOXIDE 22 MMOL/L (21-32); CHLORIDE 110 MMOL/L (98-107); CREATININE SERUM 0.83 MG/DL (0.60-1.30); GFR ESTIMATED > 60; GLUCOSE 106 MG/DL (70-105); SODIUM 141 MMOL/L (135-145); TOTAL PROTEIN 6.7 GM/DL (6.4-8.2)
== END ==
LOC: EDSTATUS 09-17 16:10 → ONC 12:52
PROVIDERS: ATTEND Internal Medicine Hematology & Oncology
DX: D64.9 Anemia, unspecified (principal); D50.0 Iron deficiency anemia secondary to blood loss (chronic); I65.29 Occlusion and stenosis of unspecified carotid artery; K21.9 Gastro-esophageal reflux disease without esophagitis; E78.5 Hyperlipidemia, unspecified; I10 Essential (primary) hypertension; M19.90 Unspecified osteoarthritis, unspecified site; Z79.82 Long term (current) use of aspirin; Z79.899 Other long term (current) drug therapy
CPT/HCPCS: 80053; 82728; 85025; G0463; 99213

== ENCOUNTER → 2020-07-06 | Outpatient (CLI) | payer MEDICARE, OTHER ==
[~2020-07-06] MED LIST changes: -LISI10TA2 PO; +LISI10TA25 PO
--- NOTE | 2020-07-06 12:30 | Diagnostic Imaging Report ---
INDICATION: History of nephrolithiasis. TECHNIQUE: Single supine view of the abdomen 10:57 AM CORRELATION STUDY: 06/18/2019 FINDINGS: Calcifications projecting over the bilateral renal silhouettes demonstrated overall appears slightly more prominent. On the right, likely over the inferior pole currently measuring approximately 14 x 7 mm (previous 7 mm) . On the left, there are multiple regional, grouped calcification, in aggregate measuring 2.2 x 1.4 cm, previously 1.3 x 1.0 cm). There is moderate overlying bowel gas and stool. No bowel obstruction. IMPRESSION: 1. Bilateral nephrolithiasis overall appears increased in severity from prior. Dictated by: Dictated on workstation # [id number]
== END ==
LOC: RAD 10:31
PROVIDERS: ATTEND Urology
DX: N20.0 Calculus of kidney (principal)
CPT/HCPCS: 74018

== ENCOUNTER 2020-10-20 12:56 | Outpatient (RCR) | payer MEDICARE, OTHER ==
[2020-08-18 11:13] LABS: ABSOLUTE RETIC # 56 10e9/uL (24-90); BASOPHILS % (AUTO) 0 % (0-10); EOSINOPHILS # (AUTO) 0.6 10^3/uL (0.0-0.3); EOSINOPHILS % (AUTO) 6 % (0-10); HEMATOCRIT 39 % (35-52); HEMOGLOBIN 12.1 g/dL (11.5-16.0); LYMPHOCYTES # (AUTO) 1.8 10^3/uL (1.0-4.0); LYMPHOCYTES % (AUTO) 17 % (12-44); MEAN CORPUSCULAR HEMOGLOBIN 28 pg (25-34); MEAN CORPUSCULAR HGB CONC 31 g/dL (32-36); MEAN CORPUSCULAR VOLUME 90 fL (80-99); MEAN PLATELET VOLUME 8.9 fL (9.0-12.2); MONOCYTES % (AUTO) 10 % (0-12); NEUTROPHILS # (AUTO) 6.8 10^3/uL (1.8-7.8); NEUTROPHILS % (AUTO) 67 % (42-75); PLATELET COUNT 220 10^3/uL (130-400); RETICULOCYTE % 1.32 % (0.50-2.40); WHITE BLOOD COUNT 10.2 10^3/uL (4.3-11.0)
[2020-08-18 11:32] LABS: ALBUMIN 4.1 GM/DL (3.2-4.5); ALKALINE PHOSPHATASE 127 U/L (40-136); BILIRUBIN,TOTAL 0.2 MG/DL (0.1-1.0); BUN/CREATININE RATIO 24; CALCIUM 9.5 MG/DL (8.5-10.1); CARBON DIOXIDE 22 MMOL/L (21-32); CHLORIDE 109 MMOL/L (98-107); CREATININE SERUM 0.78 MG/DL (0.60-1.30); GFR ESTIMATED > 60; GLUCOSE 96 MG/DL (70-105); POTASSIUM 4.4 MMOL/L (3.6-5.0); SODIUM 141 MMOL/L (135-145)
[2020-08-18 11:48] LABS: ALANINE AMINOTRANSFERASE 10 U/L (0-55)
[~2020-10-20 12:56] MED LIST changes: +FERRIC CARBOXYMALTOSE (CANCER) 750 MG in NS (IVPB) CANCER CENTER 250 ML IV SCH
[2020-10-20 13:10] LABS: BASOPHILS # (AUTO) 0.1 10^3/uL (0.0-0.1); BASOPHILS % (AUTO) 1 % (0-10); EOSINOPHILS # (AUTO) 0.9 10^3/uL (0.0-0.3); EOSINOPHILS % (AUTO) 7 % (0-10); HEMATOCRIT 40 % (35-52); HEMOGLOBIN 13.1 g/dL (11.5-16.0); LYMPHOCYTES # (AUTO) 1.8 10^3/uL (1.0-4.0); LYMPHOCYTES % (AUTO) 15 % (12-44); MEAN CORPUSCULAR HEMOGLOBIN 29 pg (25-34); MEAN CORPUSCULAR HGB CONC 33 g/dL (32-36); MEAN CORPUSCULAR VOLUME 89 fL (80-99); MEAN PLATELET VOLUME 9.1 fL (9.0-12.2); MONOCYTES # (AUTO) 1.1 10^3/uL (0.0-1.0); MONOCYTES % (AUTO) 10 % (0-12); NEUTROPHILS # (AUTO) 7.8 10^3/uL (1.8-7.8); NEUTROPHILS % (AUTO) 66 % (42-75); PLATELET COUNT 219 10^3/uL (130-400); WHITE BLOOD COUNT 11.7 10^3/uL (4.3-11.0)
== END 2020-11-16 | disposition home or self-care (01) ==
LOC: ONC 12:56
PROVIDERS: ATTEND Internal Medicine Hematology & Oncology
DX: D50.9 Iron deficiency anemia, unspecified (principal); K90.9 Intestinal malabsorption, unspecified; I10 Essential (primary) hypertension; K21.9 Gastro-esophageal reflux disease without esophagitis; I25.10 Atherosclerotic heart disease of native coronary artery without angina pectoris; E78.5 Hyperlipidemia, unspecified; E03.9 Hypothyroidism, unspecified
CPT/HCPCS: 80053; 82728; 85025; 85045; 96365

== ENCOUNTER → 2020-10-20 | Outpatient (CLI) | payer MEDICARE, OTHER ==
[2020-10-20 13:38] LABS: ALANINE AMINOTRANSFERASE 22 U/L (0-55); ALBUMIN 4.1 GM/DL (3.2-4.5); ALKALINE PHOSPHATASE 153 U/L (40-136); BILIRUBIN,TOTAL 0.5 MG/DL (0.1-1.0); BUN/CREATININE RATIO 21; CALCIUM 9.9 MG/DL (8.5-10.1); CARBON DIOXIDE 27 MMOL/L (21-32); CHLORIDE 106 MMOL/L (98-107); CREATININE SERUM 0.86 MG/DL (0.60-1.30); GFR ESTIMATED > 60; GLUCOSE 92 MG/DL (70-105); POTASSIUM 4.1 MMOL/L (3.6-5.0); SODIUM 141 MMOL/L (135-145); TOTAL PROTEIN 7.6 GM/DL (6.4-8.2)
[2020-10-20 13:59] LABS: FREE T4 (FREE THYROXINE) 1.02 NG/DL (0.70-1.48)
== END ==
LOC: LAB 13:02
PROVIDERS: ATTEND Internal Medicine
DX: I10 Essential (primary) hypertension (principal); E03.9 Hypothyroidism, unspecified
CPT/HCPCS: 36415; 80053; 84439; 84443

== ENCOUNTER → 2020-10-28 | Outpatient (CLI) | payer MEDICARE, OTHER ==
[~2020-10-28] MED LIST changes: -FERRIC CARBOXYMALTOSE (CANCER) 750 MG in NS (IVPB) CANCER CENTER 250 ML IV SCH
--- NOTE | 2020-10-28 12:30 | Diagnostic Imaging Report ---
indication: Neck pain Comparison: CT 05/11/2019. Findings: 4 views of the cervical column demonstrate worsening anterolisthesis of C3 on C4 measuring approximately 3.3 mm. There is advanced degenerative disc disease and facet joint arthropathy. There is no traumatic malalignment or fracture. No osseous lesion. Impression: 1. Worsening diffuse degenerative changes. 2. Worsening anterolisthesis of C3 on C4. Dictated by: Dictated on workstation # [id number]
== END ==
LOC: RAD 11:32
PROVIDERS: ATTEND Internal Medicine
DX: M47.812 Spondylosis without myelopathy or radiculopathy, cervical region (principal); M43.12 Spondylolisthesis, cervical region
CPT/HCPCS: 72040

== ENCOUNTER 2021-02-27 14:51 | Outpatient (RCR) | payer MEDICARE, OTHER ==
[2021-02-20 11:17] LABS: ABSOLUTE RETIC # 56 10e9/uL (24-90); BASOPHILS # (AUTO) 0.1 10^3/uL (0.0-0.1); BASOPHILS % (AUTO) 1 % (0-10); EOSINOPHILS # (AUTO) 0.7 10^3/uL (0.0-0.3); EOSINOPHILS % (AUTO) 7 % (0-10); HEMATOCRIT 39 % (35-52); HEMOGLOBIN 12.6 g/dL (11.5-16.0); LYMPHOCYTES % (AUTO) 19 % (12-44); MEAN CORPUSCULAR HEMOGLOBIN 29 pg (25-34); MEAN CORPUSCULAR HGB CONC 32 g/dL (32-36); MEAN CORPUSCULAR VOLUME 91 fL (80-99); MEAN PLATELET VOLUME 9.2 fL (9.0-12.2); MONOCYTES # (AUTO) 1.1 10^3/uL (0.0-1.0); MONOCYTES % (AUTO) 10 % (0-12); NEUTROPHILS # (AUTO) 6.8 10^3/uL (1.8-7.8); NEUTROPHILS % (AUTO) 63 % (42-75); PLATELET COUNT 246 10^3/uL (130-400); RETICULOCYTE % 1.31 % (0.50-2.40); WHITE BLOOD COUNT 10.7 10^3/uL (4.3-11.0)
[2021-02-20 11:37] LABS: ALBUMIN 3.9 GM/DL (3.2-4.5); BILIRUBIN,TOTAL 0.4 MG/DL (0.1-1.0); CALCIUM 9.6 MG/DL (8.5-10.1); CREATININE SERUM 0.87 MG/DL (0.60-1.30); POTASSIUM 4.1 MMOL/L (3.6-5.0); TOTAL PROTEIN 6.9 GM/DL (6.4-8.2)
== END 2021-04-28 | disposition home or self-care (01) ==
LOC: ONC 14:51
PROVIDERS: ATTEND Internal Medicine Hematology & Oncology
DX: D50.9 Iron deficiency anemia, unspecified (principal); K90.9 Intestinal malabsorption, unspecified; I10 Essential (primary) hypertension; K21.9 Gastro-esophageal reflux disease without esophagitis; I25.10 Atherosclerotic heart disease of native coronary artery without angina pectoris; E78.5 Hyperlipidemia, unspecified; E03.9 Hypothyroidism, unspecified
CPT/HCPCS: 80053; 82728; 85025; 85045; 99213

== ENCOUNTER → 2021-06-27 | Outpatient (CLI) | payer MEDICARE, OTHER ==
--- NOTE | 2021-06-27 15:00 | Diagnostic Imaging Report ---
PROCEDURE: CT abdomen and pelvis without contrast. TECHNIQUE: Multiple contiguous axial images were obtained through the abdomen and pelvis without the use of intravenous contrast. Auto Exposure Controls were utilized during the CT exam to meet ALARA standards for radiation dose reduction. INDICATION: Kidney stones COMPARISON: Radiographs dated 07/06/[address] dated 09/24/2017 FINDINGS: The visualized lung bases are clear. Median sternotomy. Small hiatal hernia is again seen. Cholecystectomy. The unenhanced kidney is borderline enlarged measuring approximately 19 cm in craniocaudal dimension. The unenhanced liver is otherwise unremarkable. The unenhanced spleen is unremarkable. The adrenal glands are unremarkable. The pancreas is unremarkable and stable from the prior exam. Several nonobstructing renal calculi are identified within the mid and inferior aspect of the right kidney. Previously noted stone within the right ureteropelvic junction is no longer visualized. The largest calculus is within the inferior pole of the right kidney measuring up to approximately 1.2 cm. The stones within the inferior pole of the right kidney have coalesced and increased in size when compared to prior imaging from 2018. No hydronephrosis. The right ureter is unremarkable. A 2.5 cm hypodensity within the superior pole of the left kidney is present slightly increased in size since 2018 when it measured 2.1 cm. Multiple calculi are again identified within the inferior pole of the left kidney. Stone burden has significantly increased since the prior examination in 2018. The stones are all small in size with the stones measuring up to approximately 3 mm. A new 4 to 5 mm calcification is identified within the distal left ureter proximal to the left ureteropelvic junction, series 2, image 138. There is however no associated hydroureteronephrosis. Mild vascular calcifications without aneurysmal dilatation of the abdominal aorta. The appendix is unremarkable. The urinary bladder is decompressed, therefore not well evaluated. The uterus is not visualized, likely surgically absent. Moderate colonic diverticulosis without CT evidence of diverticulitis. No bowel obstruction or pneumatosis. No significant adenopathy, free air, or free fluid within the abdomen or pelvis. Grade 1 anterolisthesis of L4 on L5 and L5 on S1, likely degenerative in nature. Scattered osseous degenerative changes. IMPRESSION: A 4 to 5 mm calculus is identified within the distal left ureter just proximal to the left ureterovesicular junction though there is no evidence of hydroureteronephrosis. Additional nonobstructing bilateral renal calculi, with stone burden having increased since the prior exam from 2018. Colonic diverticulosis without CT evidence of diverticulitis. Grade 1 anterolisthesis of L4 on L5 and L5 on S1, likely degenerative in nature. Left renal hypodensity, increased in size from the prior examination. Statistically, this likely relates to a cyst. This could be confirmed with renal ultrasound. Small hiatal hernia. Borderline hepatomegaly. Dictated by: Dictated on workstation # [id number]
--- NOTE | 2021-06-27 16:49 | Diagnostic Imaging Report ---
INDICATION: History of renal calculi. COMPARISON: Earlier same day FINDINGS: Two frontal supine radiographic views of the abdomen were obtained. Multiple extraosseous calcifications are identified projecting over the inferior poles of the bilateral renal shadows. These are felt to correspond to calculi seen on CT from earlier same day. No unexpected radiopaque foreign bodies are seen. Small bowel loops are nondistended. There is no large collection of free intraperitoneal air. Osseous structures show no acute abnormalities. IMPRESSION: 1. Bilateral renal calculi. 2. Nonobstructive small bowel gas pattern. Dictated by: Dictated on workstation # [id number]
== END ==
LOC: RAD 15:15
PROVIDERS: ATTEND Urology
DX: N20.2 Calculus of kidney with calculus of ureter (principal); K57.30 Diverticulosis of large intestine without perforation or abscess without bleeding; K44.9 Diaphragmatic hernia without obstruction or gangrene; M43.16 Spondylolisthesis, lumbar region; M43.17 Spondylolisthesis, lumbosacral region
CPT/HCPCS: 74018; 74176

== ENCOUNTER → 2021-06-27 | Outpatient (CLI) | payer MEDICARE, OTHER | LOC: CARD 14:01 | PROVIDERS: ATTEND Nurse Practitioner Family | DX: Z51.11 Encounter for antineoplastic chemotherapy (principal); I08.1 Rheumatic disorders of both mitral and tricuspid valves; Z98.890 Other specified postprocedural states | CPT/HCPCS: 93306 ==

== ENCOUNTER → 2021-07-20 | Outpatient (CLI) | payer MEDICARE, OTHER ==
[~2021-07-20] MED LIST changes: +GADOTERATE 0.5 MMOL/ML (CLARISCAN) 15 ML VIAL IV ONE
--- NOTE | 2021-07-20 14:49 | Diagnostic Imaging Report ---
EXAM: MRI BRAIN IAC W/WO CONTRAST INDICATION: Sudden right-sided hearing loss. COMPARISON: CT head without contrast 05/11/2019. FINDINGS: No residual subdural hemorrhage is seen overlying the right frontal convexity. There is diffuse pachymeningeal enhancement, right greater than left. Moderate to advanced generalized parenchymal volume loss. Moderate nonspecific T2 hyperintensities in the supratentorial white matter compatible with chronic small vessel ischemic change. No restricted water diffusion. No hemosiderin deposition. Normal morphology of the major midline structures, sella, posterior fossa and cerebellar pontine angle. No hydrocephalus. No new extra-axial fluid collections. Normal intracranial flow voids. The orbits are negative. Paranasal sinuses and mastoids are unremarkable. Dedicated sequences through the level of the internal auditory canals demonstrate normal morphology with no suspicious mass or enhancement. IMPRESSION: 1. Dedicated sequences through the level of the internal auditory canals are normal. No findings to explain hearing loss. 2. Diffuse pachymeningeal enhancement, right greater than left. This finding is most likely due to the now resolved right subdural hemorrhage which was seen on 05/11/2019. However, this finding can also be seen with CSF leaks or recent lumbar puncture. Recommend follow-up exam in 3 months to ensure resolution. 3. Age-appropriate parenchymal volume loss and chronic small vessel ischemic change. Dictated by: Dictated on workstation # [id number]
== END ==
LOC: RAD 12:30
PROVIDERS: ATTEND Otolaryngology Otolaryngology/Facial Plastic Surgery
DX: I67.82 Cerebral ischemia (principal); H91.8X1 Other specified hearing loss, right ear
CPT/HCPCS: 70553

== ENCOUNTER → 2021-10-17 | Outpatient (CLI) | payer MEDICARE, OTHER ==
--- NOTE | 2021-10-17 17:18 | Diagnostic Imaging Report ---
PROCEDURE: MR imaging of the brain with and without contrast. TECHNIQUE: Multiplanar, multisequence MR imaging of the brain was performed with and without contrast. INDICATION: 75-year-old female with previous history of subdural hematoma in April 2019 and previous MRI brain 07/20/2021 showing pachymeningeal enhancement, followup. COMPARISONS: MRI brain 07/20/2021. FINDINGS: Midline structures are not displaced. Lateral, 3rd, and 4th ventricles are normal in size, shape and anatomic position. There is no intra-axial mass, mass effect, hydrocephalus or hemorrhage. Cruz-white differentiation maintained. There are few scattered nonspecific areas of white matter change. There are no areas of diffusion restriction or diffusion signal abnormalities. No abnormal areas of intra-axial enhancement seen. There are no abnormal extra-axial fluid collections or hemorrhage. Again demonstrated is diffuse pachymeningeal enhancement. The enhancement is asymmetric with slight prominence to the right as seen on the previous study. There is no nodularity or thickening. This asymmetry precludes sequela of intracranial hypertension or sequela of lumbar puncture. In addition, the lack of the nodularity precludes a pachymeningeal enhancement from either infection or diffuse meningeal spread of tumor. Hence, this appears to be chronic and most likely sequela of the previous subdural hematoma. The petrous apices as well as 7th and 8th nerve complex are normal. Semicircular canals and cochlea show normal signal. Visualized vascular flow voids are unremarkable. Sinuses, orbits, and mastoid air cells are grossly normal. IMPRESSION: Persistent diffuse asymmetrical pachymeningeal enhancement similar to the previous exam of 07/20/2021. Given the thin distribution and lack of nodularity, this is most likely not associated with intracranial hypotension, or from recent lumbar puncture. Additional lack of nodularity as well as the thin and asymmetric nature of the enhancement, the likelihood of carcinomatosis, meningeal spread of tumor or pachymeningitis is felt to be unlikely. This is most likely sequela of the previous subdural hematoma. However, repeat MRI with and without contrast in 6-12 months is recommended. Dictated by: Dictated on workstation # [id number]
== END ==
LOC: RAD 14:45
PROVIDERS: ATTEND Otolaryngology Otolaryngology/Facial Plastic Surgery
DX: R94.02 Abnormal brain scan (principal)
CPT/HCPCS: 70553

== ENCOUNTER → 2021-10-23 | Outpatient (CLI) | payer MEDICARE, OTHER ==
[~2021-10-23] MED LIST changes: -GADOTERATE 0.5 MMOL/ML (CLARISCAN) 15 ML VIAL IV ONE
--- NOTE | 2021-10-23 14:18 | Diagnostic Imaging Report ---
Indication: Routine screening. Comparison is made with prior mammogram from 03/11/2019. 2-D and 3-D bilateral screening mammography was performed with CAD. CAD is utilized. The current study was also evaluated with a Computer Aided Detection (CAD) system. Scattered fibroglandular densities are identified bilaterally. The parenchymal pattern is stable. No spiculated ass or malignant-appearing microcalcifications are seen. Axillae are unremarkable. IMPRESSION: BI-RADS Category 1 No mammographic features suspicious for malignancy are identified. ACR BI-RADS Category 1: Negative. Result letter will be mailed to the patient. Note: At least 10% of breast cancer is not imaged by mammography. Dictated by: Dictated on workstation # [id number]
== END ==
LOC: RAD 10:16
PROVIDERS: ATTEND Internal Medicine
DX: Z12.31 Encounter for screening mammogram for malignant neoplasm of breast (principal)
CPT/HCPCS: 77063; 77067

== ENCOUNTER → 2022-04-06 | Outpatient (CLI) | payer MEDICARE, OTHER ==
--- NOTE | 2022-04-06 11:33 | Diagnostic Imaging Report ---
EXAMINATION: Abdomen 1 view HISTORY: CELINA RENAL STONES LT DISTAL URET STONE COMPARISON: 06/27/2021 FINDINGS: There is a moderate amount of gas and stool throughout the colon. Nonobstructive bowel gas pattern. Multiple stones are present overlying both kidneys which do not appear significantly change from prior exam. Largest on the right measures up to 1.9 cm. Right upper quadrant cholecystectomy clips are present. The lung bases are clear. Degenerative changes of the hips and spine. Osseous structures are otherwise intact. IMPRESSION: 1. Bilateral renal calculi measuring up to 1.9 cm on the right. 2. Moderate stool burden. Dictated by: Dictated on workstation # [id number]
--- NOTE | 2022-04-06 11:46 | Diagnostic Imaging Report ---
PROCEDURE: CT abdomen and pelvis without contrast. TECHNIQUE: Multiple contiguous axial images were obtained through the abdomen and pelvis without the use of intravenous contrast. Auto Exposure Controls were utilized during the CT exam to meet ALARA standards for radiation dose reduction. INDICATION: Bilateral flank pain. Comparison is made with prior CT from 06/27/2021. FINDINGS: The lung bases are clear of acute infiltrates. There appears to be a moderate-sized hiatal hernia. The liver is unremarkable. Gallbladder is surgically absent. No biliary ductal dilatation is seen. The pancreas and spleen are unremarkable. No adrenal mass is identified. The low-attenuation lesion upper pole left kidney is stable and consistent with a cyst. Nonobstructing calculi bilaterally are again noted, mostly in the lower poles of both kidneys. No definite ureteral calculi or hydronephrosis is identified. Aorta is calcified but nonaneurysmal. Bowel loops are normal caliber. There is diverticulosis of the descending and sigmoid colon but no evidence of acute diverticulitis. Bladder is decompressed. Uterus appears to be absent. There is no free fluid or fluid collection identified. Bony structures demonstrate spondylolisthesis of L4 on L5 and L5 on S1. IMPRESSION: 1. Bilateral nonobstructing nephrolithiasis. Overall stone burden appears similar to exam from June 2021. No ureteral calculi or hydronephrosis is detected. 2. Uncomplicated diverticulosis. 3. Hiatal hernia. Dictated by: Dictated on workstation # [id number]
== END ==
LOC: RAD 09:19
PROVIDERS: ATTEND Urology
DX: N20.0 Calculus of kidney (principal); K44.9 Diaphragmatic hernia without obstruction or gangrene; K57.30 Diverticulosis of large intestine without perforation or abscess without bleeding
CPT/HCPCS: 74018; 74176

== ENCOUNTER → 2022-05-02 | Outpatient (CLI) | payer MEDICARE, OTHER | LOC: CARD 09:57 | PROVIDERS: ATTEND Internal Medicine Cardiovascular Disease | DX: I34.0 Nonrheumatic mitral (valve) insufficiency (principal); I51.7 Cardiomegaly | CPT/HCPCS: 93306 ==

== ENCOUNTER → 2022-06-26 | Outpatient (RCR) | payer MEDICARE, OTHER | END | disposition home or self-care (01) | PROVIDERS: ATTEND Nurse Practitioner Gerontology | DX: M54.2 Cervicalgia (principal); M25.511 Pain in right shoulder; M79.601 Pain in right arm ==

== ENCOUNTER 2022-07-20 11:15 | Outpatient (RCR) | payer MEDICARE, OTHER | END 2022-07-27 | disposition home or self-care (01) | PROVIDERS: ATTEND Nurse Practitioner Gerontology | DX: M47.812 Spondylosis without myelopathy or radiculopathy, cervical region (principal); I11.9 Hypertensive heart disease without heart failure ==

== ENCOUNTER → 2022-07-23 | Outpatient (CLI) | payer MEDICARE, OTHER ==
--- NOTE | 2022-07-23 18:49 | Diagnostic Imaging Report ---
INDICATION: Preop screening for nephrolithiasis. FINDINGS: The heart size is normal. There has been previous median sternotomy. The lungs are clear. There is no pleural effusion or pneumothorax. The mediastinum is unremarkable. IMPRESSION: No acute cardiopulmonary abnormality Dictated by: Dictated on workstation # [id number]
== END ==
LOC: CARD 15:19
PROVIDERS: ATTEND Urology
DX: N20.0 Calculus of kidney (principal); N20.1 Calculus of ureter
CPT/HCPCS: 71045; 93005

== ENCOUNTER → 2022-11-09 | Outpatient (CLI) | payer MEDICARE, OTHER ==
[~2022-11-09] MED LIST changes: -LOSA100T57 PO; +LOSA100T58 PO
--- NOTE | 2022-11-09 14:36 | Diagnostic Imaging Report ---
PROCEDURE: US Renal Bilateral. TECHNIQUE: Multiple real-time grayscale images were obtained over the kidneys in various projections bilaterally. INDICATION: Kidney stone and ureteral calculus. Right kidney measures 10.2 x 4.3 x 4.2 cm and the left kidney measures 9.0 x 4.8 x 3.8 cm. Right kidney does demonstrate moderate hydronephrosis. No definite calculi are seen. Cortical thickness and echogenicity normal. Left kidney shows normal cortical thickness and echogenicity and is without calculi or hydronephrosis. Bladder volume is 220 mL. Bilateral ureteral jets were visualized. IMPRESSION: Moderate right-sided hydronephrosis. No other significant abnormality is seen. Dictated by: Dictated on workstation # [id number]
== END ==
LOC: RAD 12:30
PROVIDERS: ATTEND Urology
DX: N13.2 Hydronephrosis with renal and ureteral calculous obstruction (principal)
CPT/HCPCS: 76770

== ENCOUNTER → 2022-11-12 | Outpatient (CLI) | payer MEDICARE, OTHER ==
--- NOTE | 2022-11-12 13:30 | Diagnostic Imaging Report ---
Indication: Routine screening. Comparison is made with prior mammogram 10/23/2021 and 03/11/2019. 2-D and 3-D bilateral screening mammography was performed with with CAD. The current study was also evaluated with a Computer Aided Detection (CAD) system. No mass or malignant-appearing microcalcifications are seen. Axillae are unremarkable. Scattered fibroglandular densities are identified bilaterally. IMPRESSION: BI-RADS Category 1 No mammographic features suspicious for malignancy are identified. ACR BI-RADS Category 1: Negative. Result letter will be mailed to the patient. Note: At least 10% of breast cancer is not imaged by mammography. Dictated by: Dictated on workstation # [id number]
== END ==
LOC: RAD 10:09
PROVIDERS: ATTEND Internal Medicine
DX: Z12.31 Encounter for screening mammogram for malignant neoplasm of breast (principal)
CPT/HCPCS: 77063; 77067